=== PATIENT | female | born 1955 | race Caucasian/White ===

== ENCOUNTER 2022-09-15 09:43 | Day surgery (SDC) | payer MEDICARE, BC, SELFPAY ==
[2022-09-15] VITALS (16 sets, daily range): BP systolic 110–145; BP diastolic 60–83; PULSE 56–81; RESP 16; TEMP 36; O2SAT 95–100; BMI 25.1
--- NOTE | 2022-09-15 09:50 | ED.NURSE ---
Ice applied to pt wrist
--- NOTE | 2022-09-15 09:55 | CRLHL7_ITS ---
For Patients: As a result of the Cures Act, medical imaging exams and procedure reports are released immediately into your electronic medical record. You may view this report before your referring provider. If you have questions, please contact your health care provider. Indication: Injury Technique: A total of two views of the left wrist were acquired. Comparison: None Findings: Bones: Impacted comminuted fracture the distal left radius with significant dorsal displacement and angulation deformity. Fracture of the distal left ulna with displacement impaction and dorsal angulation deformity Joint spaces: The radiocarpal interval and the scapholunate interval appear normal Soft tissues: Soft tissue swelling Impression: Fractures of the distal left radius and ulna Dictated by Hema Jane MD @ 09/15/2022 10:34:01 AM (Electronically Signed)
[2022-09-15] MEDS: ACETAMINOPHEN 500 MG TABLET 1000 MG PO (10:00)
--- NOTE | 2022-09-15 10:02 | ED.TRAUMA ---
HPI - Trauma General Chief Complaint: Extremity Pain/Injury, Upper Stated Complaint: L wrist injury Time Seen by Provider: 09/15/22 09:45 History of Present Illness HPI narrative: Pt is a 67 year old woman who fell on the ice today just prior to arrival injuring her left hand and wrist. She has severe pain in the wrist with only mild pain in the hand. She also has a small 1 cm skin tear on the anterior surface of the wrist. No shoulder or wrist pain. Pt did not hit her head and did not lose consciousness. Pt was walking outside when she fell. Pt has no otherr injuries. Pt otherwise feels well. Related Data Home Medications Medication Instructions Recorded Confirmed No Known Home Medications 09/15/22 09/15/22 Allergies Allergy/AdvReac Type Severity Reaction Status Date / Time penicillin G Allergy Verified 09/15/22 09:53 Review of Systems Status of ROS: Reports: 10 or more systems reviewed and unremarkable except as noted in History and below PFSH PFS Social History Smoking Status: Never smoker Do you use any of these nicotine containing products: None Second hand tobacco smoke exposure: No How often do you have a drink containing alcohol: never How often do you have six or more drinks on one occasion: Never AUDIT-C Alcohol total score: 0 Non-prescribed substance use: denies use service: No Exam Narrative: Exam Narrative: EXAM GENERAL: Patient appears to be in pain. EYES: No scleral icterus. LYMPH: No supraclavicular or cervical lymphadenopathy. SKIN: Visible skin seen during exam normal or with benign process only. EXT: No dependent lower extremity pedal edema. Non anatomical alignment of the distal ulna grossly on external inspection. Pulses are appropriate no neural muscular abnormalities. HEART: Regular rate and rhythm with no murmurs, rubs, or gallops. LUNGS: Clear to auscultation bilaterally with no crackles or wheezes. ABD: Soft, non tender, non distended. PSYCH: Good eye contact, speech is not pressured. Const: Vital Signs, click to edit/add: Vital Signs - 24 hr 09/15/22 09:50 Pulse Rate [Left P ulse Oximeter] 56 L Respiratory Rate 16 Blood Pressure [Ri ght Upper Arm] 122/83 Pulse Oximetry 95 Oxygen Delivery Me thod Room Air Course Course Hospital Course: X ray left hand and wrist ordered. Reevaluation(s) Reevaluation #1: X ray shows distal radius and ulna fractures. Skin tear examined. This appears to be an open fracture. Time: 11:29 Consultations Consultation #1: Spoke with Ortho and Anesthesia. They will plan to take pt to OR in the next hour. Time: 11:30 Vital Signs Vital signs: Initial Vital Signs Pulse Rate 56 L 09/15/22 09:50 Pulse Rhythm 09/15/22 09:50 Pulse Strength 3+ Normal 09/15/22 09:50 Respiratory Rate 16 09/15/22 09:50 Blood Pressure 122/83 09/15/22 09:50 Blood Pressure Mean 96 09/15/22 09:50 Blood Pressure Position Sitting 09/15/22 09:50 Pulse Oximetry 95 09/15/22 09:50 Oxygen Delivery Method 09/15/22 09:50 Vital Signs Pulse Rate 56 L 09/15/22 09:50 Respiratory Rate 16 09/15/22 09:50 Blood Pressure 122/83 09/15/22 09:50 Pulse Oximetry 95 09/15/22 09:50 Oxygen Delivery Method 09/15/22 09:50 Pulse Rate 56 L 09/15/22 09:50 Respiratory Rate 16 09/15/22 09:50 Blood Pressure 122/83 09/15/22 09:50 Pulse Oximetry 95 09/15/22 09:50 Oxygen Delivery Method 09/15/22 09:50 MDM - Trauma MDM Narrative Medical decision making narrative: Pt presents with injury to left wrist. Differential included sprain, fracture, strain, contusion. X ray showed distal radius and ulna fractures with skin opening making this an open fracture. Consulted with Ortho and Anesthesia. Pt will proceed to the OR for surgical repair. Tdap updated. Pain treated with po Tylenol and then IV Dilaudid. Discharge Plan Discharge Clinical Impression: Left wrist fracture Patient Disposition: Pending Disposition Activity Level: Other Discharge Diet: Other Prescriptions: No Action No Known Home Medications
[2022-09-15] MEDS: ONDANSETRON 2 MG/ML inj 4 MG IVP (10:48)
[2022-09-15] MEDS: HYDROmorphone 0.5 mg/0.5 ml inj IVP (10:48)
[2022-09-15] MEDS: TETANUS/DIPHTH/PERTUSSIS 0.5 ML SYRINGE IM (11:22)
[2022-09-15] MEDS: LACTATED RINGERS 1000 ML 1,000 ML 100 ML IV ×2 (11:45→15:19)
--- NOTE | 2022-09-15 11:57 | CRLHL7_ITS ---
For Patients: As a result of the Cures Act, medical imaging exams and procedure reports are released immediately into your electronic medical record. You may view this report before your referring provider. If you have questions, please contact your health care provider. Indication: LT INTRA OP ORIF WRIST Technique: Three fluoroscopic images of the left wrist. Fluoroscopic time 2 minutes 3.6 seconds. IMPRESSION: Postop changes open reduction internal fixation of distal radial fracture. Percutaneous pin placement about the distal ulnar fracture. Dictated by Gordon Álvarez MD @ 09/16/2022 9:43:54 AM (Electronically Signed)
[2022-09-15] MEDS: MIDAZOLAM HCL 1 MG/ML inj IVP (12:05)
[2022-09-15] MEDS: fentaNYL 100 MCG/2 ML inj IVP (12:05)
[2022-09-15 12:17] LABS: SARS PCR* Negative SARS-CoV-2 (Negative)
--- NOTE | 2022-09-15 12:24 | P.NB_ITS ---
Nerve Block Nerve Block Time Seen by Provider: 12:00 Date Seen: 09/15/22 Type of block requested by surgeon for post-operative analgesia: axillary Side: left Time out performed: Yes Verification of patient name: Yes Verification of date of : Yes Site marking: site marked Name of person performing procedure: robert Continuous monitoring Was continuous monitoring of O2 sat, B/P, teletypesetter monitor, recorded every 15 minutes?: Yes Procedure Checklist: sterile prep, needles and gloves Ultrasound guided. Images saved: Yes Medications given in 5ml increments after negative aspiration: Ropivicaine %: 0.5 mL: 20 Needle gauge: 20 Decadron (mg): 10 Precedex (mcg): 25 Patient tolerated procedure well: Yes Block Charges Block Charge (with Pro Fee): Axillary Nerve Use of Ultrasound Machine for Block: Yes- US Guidance/pain block
--- NOTE | 2022-09-15 12:26 | SUR.PREOP ---
TIME?OUT:?1203 PT/RN/SEATING CAPTAIN?VERIFICATION?OF?SURGICAL?SITE left wrist,?PROCEDURE,?AND?CONSENT OBTAINED?PRIOR?TO?INVASIVE?PROCEDURE.
[2022-09-15] MEDS: CEFAZOLIN 2 GM in 0.9 % SODIUM CHLORIDE Mini-bag 100 ML IVPB (12:35)
--- NOTE | 2022-09-15 14:53 | PM.ORPRC ---
Procedure Note Date of procedure: 09/15/22 Procedure: PREOPERATIVE DIAGNOSIS: Type 1 open, Angulated 3+ part intra-articular left upper extremity distal radius and ulna fractures POSTOPERATIVE DIAGNOSIS: Type 1 open, Angulated 3+ part intra-articular left upper extremity distal radius and ulna fractures NAME OF OPERATION: Open reduction internal fixation, irrigation and debridement of bone and soft tissue contamination SURGEON: Gonzalo Stern MD GUIDE DOMESTIC TOUR: Ivonne Pitts PA-C, [employer] [facility] ANESTHESIA: Supraclavicular block plus monitored anesthesia care ESTIMATED BLOOD LOSS: 0 mL COMPLICATIONS: None SPECIMENS: None DRAINS: None PREOPERATIVE ANTIBIOTICS: Ancef 2 grams INDICATIONS: The patient is a 67-year-old who fell landing on their upper extremity sustaining the above injury. Since the fracture was open, emergent treatment was recommended. Given the amount of displacement and angulation, reduction and plate fixation were recommended. The risks, benefits and expected outcomes were discussed in detail. These included but were not limited to: Infection, bleeding, injury to blood vessel or nerve, venous thromboembolism. All questions were answered to their satisfaction. Use of an laboratory chemical assistant was necessary throughout the case for patient positioning and safety, maintenance of the reduction, surgical site dressing and splint application. A modifier 22 should be added to this case. Given the amount of displacement, comminution, intra-articular nature and involvement of the ulna this made reduction and fixation quite difficult. This more than tripled the time typically required to repair a distal radius fracture. PROCEDURE: A supraclavicular block was placed by Anesthesia. The patient was placed supine on the operating room table. IV sedation was administered. The left upper extremity was prepped and draped in the usual sterile fashion. The limb was exsanguinated with the Marcin bandage. The pneumatic tourniquet was inflated to 250 mm of mercury. There is an 8 mm, inside out, transverse laceration over the volar aspect of the wrist. There is a 3 x 5 mm piece of cortical bone adherent to the skin/superficial soft tissues. It appears contaminated with either dirt or gravel. The rest of the traumatic wound is clean, without contamination. This small piece of bone was debrided. A longitudinal incision was made over the flexor carpi radialis. Subcutaneous dissection was taken sharply through the FCR sheath. The FCR was retracted radially. Sharp dissection was carried through the floor of the FCR sheath. The flexor pollicis longus was retracted ulnarly. Sharp dissection was carried through the radial border of the pronator quadratus which was elevated ulnarly, exposing the fracture site. The laboratory chemical assistant held retractors to expose the fracture. There is a marked amount of comminution. We irrigated traumatic wound and surgical wound with 1 L of normal saline via bulb syringe. We placed a Synthes 6 hole volar locking plate over the volar cortex. It was provisionally held with 2 BB tacks, while the laboratory chemical assistant held the reduction. Its placement was confirmed with the image intensifier. We placed a cortical screw in the slot. We placed a locking screw in the shaft. We then filled the distal screw holes with smooth locking pegs using the image intensifier to confirm their extra-articular placement. The radial column appears reduced. However, the ulnar column was displaced ulnarly and would not reduce in the radial direction. Therefore we took the entire distal construct down and started over. We were able to visualize anatomic landmarks on the ulnar column. Therefore, we started here holding this anatomically reduced. We placed 3 smooth locking pegs in this fragment. This nicely held the ulnar column. Next we reduced the radial column to the ulnar column holding it out to length and shifted ulnarly. We then placed 3 smooth pegs in the radial column. This provided good fixation on this side of the fracture. At this point, we felt like we had an excellent reduction. None of our smooth pegs appear in the joint, carefully visualized in many planes with the image intensifier. A 2nd locking screw was placed in the shaft fragment. The ulna fracture is nicely aligned as the distal radioulnar joint ligaments are intact. However, we felt that some provisional fixation of the ulna fracture was necessary. Therefore, a 0.062 in K-wire was driven retrograde through the ulnar styloid and ulnar head, across the fracture site and down the canal. This improved our fixation of the ulna fracture. The wound was irrigated normal saline. The fracture site was bone grafted with cancellous allograft mixed with DBM and several autologous cortical pieces which were devoid of soft tissue attachments. Subcutaneous tissues were reapproximated a 2-0 Vicryl, skin with a running 3-0 Monocryl in a subcuticular fashion. Glue was used to seal the skin. A dry dressing and short-arm dorsal volar splint was applied. These steps were all completed by the laboratory chemical assistant. The tourniquet was released, sponge and needle counts were correct x2. The patient tolerated the procedure well, there were no apparent complications. They were taken to the postanesthesia care unit in satisfactory condition. PLAN: The patient will be discharged home. They will work on elevation of the hand and active range of motion of the fingers. They will follow up next week in the office for a wound check with a PA, oblique, lateral and fossa lateral view of the wrist out of the splint prior to being seen in preparation a short-arm, conventional cast. We will plan on 6 weeks total of immobilization, then discontinue the K-wire and begin occupational therapy.
--- NOTE | 2022-09-15 15:20 | P.ANES_ITS ---
Anesthesia Charges Start Date/Time Anesthesia Start Date: 09/15/22 Anesthesia Start Time: 12:28 Stop Date/Time Anesthesia Stop Date: 09/15/22 Anesthesia Stop Time: 15:21 Summary Emergency: [employer]
--- NOTE | 2022-09-15 15:26 | PM.ORCN ---
History of Present Illness HPI Date Seen: 09/15/22 Requesting physician: Marek Davis Chief complaint: L wrist injury Narrative: Patient is a 67-year-old, [id number] woman who fell on her outstretched left hand today. She was seen in the emergency department with physical exam findings worrisome for an open distal radius fracture. She has never injured this wrist or had surgery previously. She does not have diabetes, does not smoke cigarettes and is not on blood thinners. She states that her fingers are somewhat numb and tingly. Review of Systems Narrative: The patient denies: Fever, night sweats, shaking chills, nausea, vomiting, diarrhea, chest pain, chest pressure, shortness of breath, no rash, no change in hearing or vision, no issues with bleeding or clotting [facility] Social History Smoking Status: Never smoker Do you use any of these nicotine containing products: None Second hand tobacco smoke exposure: No How often do you have a drink containing alcohol: never How often do you have six or more drinks on one occasion: Never AUDIT-C Alcohol total score: 0 Non-prescribed substance use: denies use Caffeine: Yes service: No Meds Home Medications and Allergies Home Medications Medication Instructions Recorded Confirmed Type No Known Home Medications 09/15/22 09/15/22 History Allergies Allergy/AdvReac Type Severity Reaction Status Date / Time penicillin G Allergy Verified 09/15/22 09:53 Ortho Exam Narrative Exam Narrative: The patient is examined semi erect on the hospital cart. The left upper extremity has an 8 mm, transverse laceration over the volar aspect of the wrist. There is clinical apex volar angular malalignment. Sensation is grossly intact to light touch throughout all 3 nerve distributions. However, she states a numb and tingly feeling in all 5 digits. She is able to wiggle her fingers and thumb. The digits are pink and viable. Const Vital Signs, click to edit/add: Vital Signs - 24 hr 09/15/22 09:50 09/15/22 10:54 09/15/22 10:55 Temperature Pulse Rate 71 Pulse Rate [Left Pulse Oximeter] 56 L Respiratory Rate 16 Blood Pressure 110/60 Blood Pressure [Right Upper Arm] 122/83 Pulse Oximetry 95 97 Oxygen Delivery Method Room Air Oxygen Flow Rate 09/15/22 11:00 09/15/22 11:02 09/15/22 11:15 Temperature Pulse Rate 70 67 77 Pulse Rate [Left Pulse Oximeter] Respiratory Rate Blood Pressure 112/63 Blood Pressure [Right Upper Arm] Pulse Oximetry 99 98 98 Oxygen Delivery Method Oxygen Flow Rate 09/15/22 11:30 09/15/22 11:32 09/15/22 12:03 Temperature Pulse Rate 75 72 79 Pulse Rate [Left Pulse Oximeter] Respiratory Rate 16 Blood Pressure 122/80 123/61 Blood Pressure [Right Upper Arm] Pulse Oximetry 99 100 99 Oxygen Delivery Method Nasal Cannula Oxygen Flow Rate 2 09/15/22 12:11 09/15/22 12:15 09/15/22 12:20 Temperature Pulse Rate 81 76 73 Pulse Rate [Left Pulse Oximeter] Respiratory Rate 16 16 16 Blood Pressure 128/73 124/69 110/65 Blood Pressure [Right Upper Arm] Pulse Oximetry 100 100 98 Oxygen Delivery Method Nasal Cannula Nasal Cannula Nasal Cannula Oxygen Flow Rate 2 2 2 09/15/22 15:21 Temperature 96.8 F L Pulse Rate 74 Pulse Rate [Left Pulse Oximeter] Respiratory Rate 16 Blood Pressure 110/68 Blood Pressure [Right Upper Arm] Pulse Oximetry 97 Oxygen Delivery Method Room Air Oxygen Flow Rate Results Labs Labs: Laboratory Results - last 48 hr 09/15/22 11:30 SARS-CoV-2 (PCR) Negative SARS-CoV-2 Diagnostic results Additional Comments: AP and lateral views of the left wrist show a 3 part intra-articular, comminuted and dorsally displaced distal radius fracture. There may be a small cortical fragment in the volar soft tissues, just deep to the skin. There is a fracture of the distal aspect of the ulna at the neck. There is apex volar angulation and dorsal displacement of this fracture as well. Assessment and Plan Assessment and plan (1) Left wrist fracture: Status: Acute Plan Assessment: Type 1 open three-part intra-articular comminuted and displaced left upper extremity distal radius and ulna fractures foot Plan: I told the patient and her that her injury is best treated emergently. This would include irrigation and debridement of the traumatic injury and fixation of the fractures. She understands and wishes to proceed with surgery.
== END 2022-09-15 16:24 | disposition home or self-care (01) ==
LOC: ED 11:33 → SS 11:35
PROVIDERS: Emergency Provider Internal Medicine; Visit Provider Orthopaedic Surgery
PROC: (CPT 25575; principal; 2022-09-15 13:00)
DX: S52.572B Other intraarticular fracture of lower end of left radius, initial encounter for open fracture type I or II (principal); S52.692B Other fracture of lower end of left ulna, initial encounter for open fracture type I or II
CPT/HCPCS: 25609; 25652; 11012; 01830; 64417; 73100; 76000; 76942; 87635; 90715; 99140; 99283; 99284; 99285; A4580; A9270; C1713; J0690; J1100; J1170; J2250; J2405; J2704; J2795; J3010; J7120

== ENCOUNTER 2023-02-08 14:13 | Outpatient (CLI) | payer MEDICARE, BC, SELFPAY ==
--- NOTE | 2023-02-08 14:30 | CRLHL7_ITS ---
For Patients: As a result of the Century Cures Act, medical imaging exams and procedure reports are released immediately into your electronic medical record. You may view this report before your referring provider. If you have questions, please contact your health care provider. DXA BONE MINERAL DENSITY STUDY Current height (in): 68.0. Weight (lb): 170.0. Menopause age: 49. Ethnicity: White. 1. Have you had a previous hip or vertebral fracture? No. 2. Have you had any fractures during your adult life which did not result from significant trauma (e.g., auto accident)? No. 3. Did either of your parents have a hip fracture? Yes. 4. Do you smoke? No. 5. Have you ever taken Glucocorticoids? No. 6. Do you have rheumatoid arthritis? No. 7. Do you have secondary osteoporosis? No. 8. Do you drink 3 or more alcoholic drinks per day? No. 9. Are you being treated for osteoporosis? No. 10. Have you ever taken any of the following medications: Actonel, Evista, Fosamax, Miacalcin, Reclast, Boniva, Forteo, HRT (i.e. estrogen/hormone therapy), Protelos, Prolia, Vitamin D, Calcium, other ??? please specify. ANSWER: Yes, vitamin D. 11. Do you have any of the following medical conditions: Anorexia or bulimia, asthma or emphysema, end stage renal disease, hyperparathyroidism, any seizure disorders, cancer, inflammatory bowel diseases, hysterectomy, other ??? please specify. ANSWER: Yes, cancer. 12. What was your maximum height (inches)? 69. 13. Do you perform weight bearing exercise regularly? No. 14. Do you regularly consume dairy products? Yes. 15. Do you drink caffeinated beverages? Yes. 16. At what age did your period start? 12. 17. Are you premenopausal? No. 18. How many full term pregnancies have you had? 2. 19. Have you ever missed your period for more than 6 months in a row (not including or menopause)? No. TECHNIQUE: Bone mineral density study was performed using the [employer]. FINDINGS: The results of the study expressed as bone mineral density (BMD) are as follows: Lumbar spine L1 to L4: BMD: 0.804 g/cm2. T-score: -2.2. Z-score: -0.2. Neck Left: BMD: 0.671 g/cm2. T-score: -1.6. Z-score: 0.1. Right: BMD: 0.707 g/cm2. T-score: -1.3. Z-score: 0.4. Total Left: BMD: 0.913 g/cm2. T-score: -0.2. Z-score: 1.2. Right: BMD: 0.873 g/cm2. T-score: -0.6. Z-score: 0.9. IMPRESSION: Osteopenia. FRAX 10-year Fracture Risk Major Osteoporotic Fracture: 17 percent Hip Fracture: 2.5 percent Reported Risk Factors: [place] () Neck BMD=0.671, BMI=25.8, parental fracture Gordon Álvarez M.D. Diagnostic Radiologist [email or web address] KELLY/megan / be/Dictated by: Gordon Álvarez MD @ 02/08/2023 3:33:00 PM (Electronically Signed)
== END 2023-02-08 14:14 | disposition home or self-care (01) ==
LOC: RAD 14:14
PROVIDERS: PCP Family Medicine; Visit Provider Family Medicine
DX: Z78.0 Asymptomatic menopausal state (principal); M85.89 Other specified disorders of bone density and structure, multiple sites
CPT/HCPCS: 77080

== ENCOUNTER 2023-02-28 07:50 | Outpatient (CLI) | payer MEDICARE, BC, SELFPAY | END 2023-02-28 07:51 | disposition home or self-care (01) | LOC: NFLDREF 12:31 | PROVIDERS: PCP Family Medicine; Referring Provider Family Medicine; Visit Provider Family Medicine | DX: E03.9 Hypothyroidism, unspecified (principal); R53.83 Other fatigue; E78.5 Hyperlipidemia, unspecified; M85.80 Other specified disorders of bone density and structure, unspecified site | CPT/HCPCS: 80053; 80061; 82306; 84443 ==

== ENCOUNTER 2023-05-30 07:31 | Outpatient (CLI) | payer MEDICARE, BC, SELFPAY | END 2023-05-30 07:32 | disposition home or self-care (01) | LOC: NFLDREF 06-01 16:24 | PROVIDERS: PCP Family Medicine; Referring Provider Family Medicine; Visit Provider Family Medicine | DX: E78.5 Hyperlipidemia, unspecified (principal); M85.80 Other specified disorders of bone density and structure, unspecified site; T45.2X1A Poisoning by vitamins, accidental (unintentional), initial encounter | CPT/HCPCS: 80061; 82306 ==

== ENCOUNTER 2024-03-05 07:34 | Outpatient (CLI) | payer MEDICARE, BC, SELFPAY ==
--- OUTSIDE RECORDS SUMMARY | 2024-03-05 15:55 | XMS_ITS | Encounter Summary ---
Author Organization [facility] Address [address] [place] [address]. [place] [address] Care Team Providers Care Small Business Director Name Role Phone SteeleLor rivera Faye MEAT GRADER Unavailable [phone] Shannon Dominguez MD Primary Care Provider Shannon Dominguez MD Unavailable [phone] Encounter Details Date Type Department Care Team (Late st Contact Info) Description 11/17/2020 [facility] [place]ice [facility] [id number] [place] [id number] [place] [id number] [place] [address] Social History Tobacco Use Types Packs/Day Years Used Date Smoking Tobacco: Former Cigarettes Smokeless Tobacco: Never Comments:quit in 1984 Alcohol Use Standard Drinks/Week Comments Yes 0 (1 standard drink = 0.6 oz pur e alcohol) rare PHQ-2 Answer Date Recorded PHQ-2 Score 0 11/10/2020 Sex and Gender Information Value Date Recorded Sex Assigned at Female 08/17/2020 3:07 PM [employer] CLERK Gender Identity Female 08/17/2020 3:07 PM [employer] CLERK Sexual Orientation Straight 08/17/2020 3: 07 PM [employer] CLERK COVID-19 Exposure Response Date Recorded In the last month, have you been in contact with someone who was confirmed or suspected to have Coronavirus / COVID-19? No / Unsure 11/10/2020 4:00 PM CDT documented as of this encounter Miscellaneous Notes * Telephone Encounter - Edward Degroot CMA - 11/18/2020 7:34 AM CDT Sent her a mychart at 730am on 11/18/2020 that her last colonocospy was 04/06/2018.Edward Degroot CMA documented in this encounter Plan of Treatment Not on file documented as of this encounter Visit Diagnoses Not on filedocumented in this encounter Care Teams Small Business Director Relationship Specialty [place] [address] [place] [address] PCP - General Family Medicine 11/10/20 Lor Steele NP [facility] [address] [place] [address] Assigned PCP 02/02/20 11/28/20 [place] [address] [place] [address] Assigned PCP 11/29/20 documented as of this encounter
--- OUTSIDE RECORDS SUMMARY | 2024-03-05 15:55 | XMS_ITS | Clinical Summary ---
Author Organization [facility] Address [address] [place] [address] Care Team Providers Care Regional Clinical Director Name Role Phone Shannon Dominguez MD Primary Care Provider [phone] Shannon Dominguez MD Unavailable [phone] Allergies Active Allergy Reactions Criticality Noted Date Comments Penicillin V 03/22/2010 Rash, hives Medications Medication Sig Dispensed Refills Start Date End Date Status multivitamin, therapeutic with minerals (THERA-VIT-M) TABS tablet Take 1 tablet by mouth daily Active Active Problems Problem Noted Date Diagnosed Date Nontoxic multinodular goiter 11/10/2020 Malignant neoplasm of right female breast, unspecified estrogen receptor status, unspecified site of breast 11/10/2020 Family history of osteoporosis 04/01/2013 Vitamin D deficiency 03/29/2012 Osteopenia 03/22/2010 Resolved Problems Problem Noted Date Diagnosed Date Resolved Date Cervical pain 10/10/2017 01/02/2018 Left shoulder pain 10/10/2017 8 Malignant neoplasm of female breast, unspecified laterality, unspecified site of breast 01/27/2017 11/10/2020 Overview: Seeing oncologist -Dr Harmon-[facility] Wrist stiffness 01/14/2016 05/06/2016 Closed fracture of right distal radius 01/14/2016 11/10/2020 Closed displaced fracture of styloid process of right ulna with delayed healing 01/14/201611/10 Traumatic closed minimally d isplaced fracture of distal ulna 12/02/2015 05/06/2016 Closed traumatic nondisplace d fracture of distal end of right radius 12/02/2015 05/06/2016 Advanced directives, counseling/discussion 04/17/2012 01/22/2024 Overview: Referral placed on patient's behalf. Message left to call regarding needs for HC. Tona Willis LPN Thyroid nodules 03/26/2012 11/10/2020 Overview: Problem list name updated by automated process. Provider to review and confirm CARDIOVASCULAR SCREENING; LD L GOAL LESS THAN 160 06/06/2010 01/27/2017 Breast cancer 03/22/2010 01/27/2017 Overview: Seeing oncologist -Dr Harmon-[facility] Thyroid enlarged 03/22/2010 11/10/2020 Immunizations Name Administration Dates Next Due COVID-19 MONOVALENT 12+ (Pfizer) 09/26/2020,08/08 Influenza (IIV3) PF 05/07/2015 Influenza Vaccine 18-64 (Flublok) 05/17/2018 Influenza Vaccine 65+ (FLUAD) 05/03/2020 Influenza Vaccine >6 months,quad, PF 05/07/2016 Pneumococcal 20 valent Conjugate (Prevnar 20) TDAP Vaccine (Adacel) 01/31/2019 TDAP Vaccine (Boostrix) 03/22/2010 Zoster recombinant adjuvanted (SHINGRIX) 021,08/21/2020 Family History Medical History Relation Comments Hypertension Brother 1 Family History Negative Father fro m fall-at age of 42 Family History Negative Maternal Grandfather Congenital Anomalies Maternal Grandmother Heart Disease Maternal Grandmother at of 65 Arthritis Mother PMR hx of this Heart Disease Mother last year-f rom uti bpfrhbo-ccjrtwrsoj-ug age of 76 Osteoporosis Mother mother had heart attack at 66 Cancer Paternal Grandfather leukemia Heart Disease Paternal Grandmother from h eart atttack at age of 62 Hypertension Sister 1 Breast Cancer No family hx of Cancer - colorectal No family hx of Colon Cancer No family hx of Relation Status Comments Brother Father Maternal Grandfather Maternal Grandmother Mother Paternal Grandfather Paternal Grandmother Sister Social History Tobacco Use Types Packs/Day Years Used Date Smoking Tobacco: Former Cigarettes Smokeless Tobacco: Never Comments:quit in 1984 Alcohol Use Standard Drinks/Week Comments Yes 0 (1 standard drink = 0.6 oz pur e alcohol) rare Social Connection and Isolat ion Panel [NHANES] Answer Date Recorded In a typical week, how many times do you talk on the phone with family, friends, or neighbors? More than three times a week 01/31/2022 How often do you get togethe r with friends or relatives? Once a week 01/31/2022 How often do you attend chur or hinduism services? More than 4 times per year 01/31/2022 Do you belong to any clubs o r organizations such as mandaen groups, unions, fraternal or athletic groups, or school groups? Yes 01/31/2022 Attends Club or Organization Meetings Not on angel e 01/31/2022 Are you , , di vorced, , never , or living with a partner? 01/31/2022 AUDIT-C Answer Date Recorded Q1: How often do you have a drink containing alcohol? 4 or more times a week 01/31/2022 Q2: How many drinks containi ng alcohol do you have on a typical day when you are drinking? 1 or 2 Q3: How often do you have si x or more drinks on one occasion? Never 01/31/2022 Overall Financial Resource Strain (CARDIA) Answe r Date Recorded How hard is it for you to pa y for the very basics like food, housing, medical care, and heating? Not hard at all 01/31/2022 PHQ-2 Answer Date Recorded PHQ-2 Score 0 01/31/2022 [facility] - Occupational Stress Questionnaire Answer Date Recorded Do you feel stress - tense, restless, nervous, or anxious, or unable to sleep at night because your mind is troubled all the time - these days? Not at all 01/31/2022 Exercise Vital Sign Answer Date Recorde d On average, how many days pe r week do you engage in moderate to strenuous exercise (like a brisk walk)? 7 days 01/31/2022 On average, how many minutes do you engage in exercise at this level? 40 min 01/31/2022 Hunger Vital Sign Answer Date Recorded Within the past 12 months, y ou worried that your food would run out before you got the money to buy more. Never true 02/01/20 22 Within the past 12 months, t he food you bought just didn't last and you didn't have money to get more. Never true 01/31/2022 PRAPARE - Transportation Answer Date Re corded In the past 12 months, has l ack of transportation kept you from medical appointments or from getting medications? No 01/06 In the past 12 months, has l ack of transportation kept you from meetings, work, or from getting things needed for daily living? No 01/31/2022 Housing Stability Vital Sign Answer Kentrell e Recorded In the last 12 months, was t here a time when you were not able to pay the mortgage or rent on time? No 01/31/2022 In the last 12 months, how many places have you lived? 1 01/31/2022 In the last 12 months, was t here a time when you did not have a steady place to sleep or slept in a correction (including now)? No 01/31/2022 Adolescent Education Answer Date Record ed Getting School Help Needed Not on file 05/24 Sex and Gender Information Value Date Recorded Sex Assigned at Female 08/17/2020 3:07 PM SKEIN WASHER Gender Identity Female 08/17/2020 3:07 PM SKEIN WASHER Sexual Orientation Straight 08/17/2020 3: 07 PM SKEIN WASHER Last Filed Vital Signs Vital Sign Reading Time Taken Comments Blood Pressure 122/78 01/31/2022 6:56 AM CDT Pulse 91 01/31/2022 6:56 AM CDT Temperature 36.7 ??C (98 ??F) 01/31/2022 6:56 AM CDT Respiratory Rate 16 01/31/2022 6:56 AM CDT Oxygen Saturation 98% 01/31/2022 6:56 AM CDT Inhaled Oxygen Concentration - - Weight 79.4 kg (175 lb) 01/31/2022 6:56 AM CDT Height 172.7 cm (5' 8) 01/31/2022 6:56 AM CDT Body Mass Index 26.61 01/31/2022 6:56 AM CDT Plan of Treatment Health Maintenance Due Date Last Done Comments CT COLONOGRAPHY 1955 FIT 1955 FLEX SIG 1955 sDNA (Cologuard) 1955 RSV VACCINE ( & 60+) (1 - 1-dose 60+ series) 2014 GLUCOSE 02/27/2021 02/27/2018, 11/0 02/2016, 07/01/2015, Additional history exists ANNUAL REVIEW OF HM ORDERS 01/31/2023 01/31/2022, FALL RISK ASSESSMENT 01/31/2023 01/31/2022, 11/10/2020, 11/10/2020 MEDICARE ANNUAL WELLNESS VISIT 01/31/2023 01/31/2022, 11/10/2020, 02/27/2018, Additional history exists COVID-19 Vaccine ( season) 2023 08/17/2021, 09/26/2020, 09/04/2020 PHQ-2 (once per calendar year) 2023 01/31/2022, 11/10/2020, 02/27/2018, Additional history exists DEXA 01/19/2024 01/18/2021, 0804/2012, 01/05/2010 INFLUENZA VACCINE (#1) 2024 , 05/03/2020, 05/17/2018, Additional history exists MAMMO SCREENING 10/08/2024 10/09/2023, 08/09, 09/09/2021, Additional history exists ADVANCE CARE PLANNING 11/10/2025 11/10/2020 , 02/27/2018 (Declined), 04/17/2012, Additional history exists LIPID 01/31/2027 01/31/2022, 04/0 01/2021, 02/27/2018, Additional history exists COLONOSCOPY 04/06/2028 04/06/2018, 04/06/2018 COLORECTAL CANCER SCREENING 04/06/2028 DTAP/TDAP/TD IMMUNIZATION (4 - Td or Tdap) 09/15/2032 09/15/2022, 01/31/2019, 03/22/2010 HEPATITIS C SCREENING Completed 05/23/2014 LUNG CANCER SCREENING Discontinued 03/16/2018 ZOSTER IMMUNIZATION Completed 10/27/2020, Pneumococcal Vaccine: 65+ Years Completed 01/31/2022 HPV IMMUNIZATION Aged Out No longer e ligible based on patient's age to complete this topic IPV IMMUNIZATION Aged Out No longer e ligible based on patient's age to complete this topic MENINGITIS IMMUNIZATION Aged Out No l onger eligible based on patient's age to complete this topic RSV MONOCLONAL ANTIBODY Aged Out No l onger eligible based on patient's age to complete this topic Procedures Procedure Name Priority Date/Time Associated Diagnosis Comments MA SCREENING LEFT W/ TAD Routine 10/09/2023 11:33 AM SKEIN WASHER Visit for screening mammogram LIPID REFLEX TO DIRECT LDL PANEL Routine 01/31/2022 7:26 AM CDT Routine general medical examination at a health care facility DX BONE DENSITY Routine 01/18/2021 1:39 PM CDT Asymptomatic menopause COLONOSCOPY Routine 04/06/2018 8:[address] CHEST/ABDOMEN/PELVIS W CONTRAST Routine 03/16/2018 9:10 AM CDT GLUCOSE Routine 02/27/2018 8:41 AM CDT Encounter for routine adult health examination without abnormal findings HEPATITIS C ANTIBODY Routine 05/23/2014 8:15 AM CDT Routine General Medical Examination At A Health Care Facility from Last 3 Months or Most Recently Relevant to Health Maintenance Results * MA Screen Left w/Tda (10/09/2023 11:33 AM SKEIN WASHER) Anatomical Region Laterality Modality Breast Bilateral Mammography Impressions 10/10/2023 1:28 PM SKEIN WASHER IMPRESSION: ACR BI-RADS Category 1: Negative BREAST CANCER SCREENING RECOMMENDATION: Routine yearly mammography beginning at age 40 or as discussed with your provider. The results and recommendations of this examination will be communicated to the patient. Kenn Polanco MD Narrative 10/10/2023 1:28 PM SKEIN WASHER LEFT FULL FIELD DIGITAL SCREENING MAMMOGRAM WITH TOMOSYNTHESIS Performed on: 10/09/23 Compared to: 09/05/2022, 08/19/2020, and 06/06/2016 Technique: ??This study was evaluated with the assistance of Computer-Aided Detection. ??Breast Tomosynthesis was used in interpretation. Findings: The patient is status post right mastectomy. The breast is heterogeneously dense, which may obscure small masses. ??There is no radiographic evidence of malignancy. Shannon Dominguez MD IMG MAMMOGRAPHY O RDERABLES * (ABNORMAL) Lipid panel reflex to direct LDL Fasting (01/31/2022 7:26 AM CDT) Cholesterol 256(H) <200 mg/dL 01/31/2022 1:33 PM CDT [facility] Triglycerides 99 <150 mg/dL 01/31/2022 1:33 PM CDT [facility] Direct Measure HDL 73 >=50 mg/dL 01/31/2022 1:33 PM CDT [facility] LDL Cholesterol Calculated 163(H) <=100 mg/dL 01/31/2022 1:33 PM CDT [facility] Non HDL Cholesterol 183(H) <130 mg/dL 01/31/2022 1:33 PM CDT [facility] Patient Fasting > 8hrs? Unknown 01/31/2022 1:33 PM CDT [facility] Blood STRUCTURE OF RIGHT UPPER LIMB / Unknown Venipuncture / Unknown 01/31/2022 7:26 AM CDT 01/31/2022 7:34 AM CDT Narrative [facility] - 01/31/2022 1:33 PM CDT Cholesterol Desirable: ??<200 mg/dL Triglycerides Normal: ??Less than 150 mg/dL Borderline High: ??150-199 mg/dL High: ??200-499 mg/dL Very High: ??Greater than or equal to 500 mg/dL Direct Measure HDL Female: ??Greater than or equal to 50 mg/dL Male: ??Greater than or equal to 40 mg/dL LDL Cholesterol Desirable: ??<100mg/dL Above Desirable: ??100-129 mg/dL Borderline High: ??130-159 mg/dL High: ??160-189 mg/dL Very High: ??>= 190 mg/dL Non HDL Cholesterol Desirable: ??130 mg/dL Above Desirable: ??130-159 mg/dL Borderline High: ??160-189 mg/dL High: ??190-219 mg/dL Very High: ??Greater than or equal to 220 mg/dL Shannon Dominguez MD LAB - BLOOD ORDER [place] [address] Lab (no room number, 1st floor of clinic) [place] [address], [facility] [phone] * DEXA HIP/PELVIS/SPINE - Future (01/18/2021 1:39 PM CDT) Anatomical Region Laterality Modality Dexa Bone Mineral Den sity Narrative 01/20/2021 3:44 PM CDT BONE DENSITOMETRY [address] [address] 01/18/2021 ?? PATIENT: Ijeoma Rivera CHART: [id number] : ??1955 AGE: ??65 year old SEX: ??female REFERRING PROVIDER: ??Shannon Dominguez MD ?? PROCEDURE: ??Bone density scanning was performed using DXA technology of the lumbar spine and hip. ??Scanning was performed on a Wimdu scanner. ??Reporting is completed in the form of a T-score. ??The T-score represents the standard deviation from peak bone mass based on a young healthy adult. ?? REFERENCE T-SCORES: ?Normal ?-1.0 and greater ?Osteopenia ? Between -1.0 and -2.5 ?Osteoporosis ? -2.5 and less ? RISK FACTORS: ??Post-menopausal, Parent history of osteoporosis, Parent history of a hip fracture, Fracture of wrist CURRENT TREATMENT: ??Calcium with Vitamin D ?? FINDINGS: ? Lumbar Spine (L1-L4) ?T-score: ??-2.2, marked degenerative changes present ? Left Femoral Neck ?T-score: ??-1.7 ? Right Femoral Neck ?T-score: ??-1.5 ? Lumbar (L1-L4) BMD: 0.926 ? Total Hip Mean BMD: 0.882 ?? IMPRESSION Osteopenia., Degenerative changes of the lumbar spine which may falsely elevate results. Patient had a study performed previously, however the scans are not available to compare to the current study. Recommendations include ensuring adequate Calcium and Vitamin D. The current NOF Guidelines recommend treatment for patients with prior hip or vertebral fracture, T-score -2.5 or below, or 10 year risk of any major osteoporotic fracture >20% or 10 year risk of hip fracture >3%, as calculated using the FRAX calculator (www.shef.ac.uk/FRAX or you can google FRAX). ?? This patient's risks based on available information, with the use of FRAX, are 29 % for major osteoporotic fracture and 2.6 % for hip fracture. Based on these guidelines, treatment (in addition to calcium and vitamin D) is recommended for this patient, after ruling out other causes of osteoporosis. This is meant as an aid to clinical decision making; one must still use clinical judgement. Follow up can be considered in 2 years. Christine Garcia M.D. Electronically signed Shannon ROMOA ORDERABL ES * COLONOSCOPY (04/06/2018 8:23 AM CDT) COLONOSCOPY [facility] Patient Name: Ijeoma Rivera ?Procedure Date: 04/06/2018 8:23 AM ? Date of : 1955 ? Admit Type: Outpatient Age: 62 ? Gender: Female Attending MD: Karina Hughes MD ?Total Sedation Time: 25 minutes Instrument Name: 138 ? Procedure: ?Colonoscopy Indications: ?Screening for colorectal malignant neoplasm Providers: ?Karina Hughes MD (Doctor) Referring MD: ? Lor Coombs NP (Referring MD) Medicines: ?Midazolam 2 mg IV, Fentanyl 75 micrograms IV Complications: ?No immediate complications. Procedure: ?Pre-Anesthesia Assessment: ?- Prior to the procedure, a History and Physical ?was performed, and patient medications and ?allergies were reviewed. The patient is competent. ?The risks and benefits of the procedure and the ?sedation options and risks were discussed with the ?patient. All questions were answered and informed ?consent was obtained. Patient identification and ?proposed procedure were verified by the physician ?and the nurse in the procedure room. Mental Status ?Examination: alert and oriented. Airway ?Examination: normal oropharyngeal airway and neck ?mobility. Respiratory Examination: clear to ?auscultation. CV Examination: normal. Prophylactic ?Antibiotics: The patient does not require ?prophylactic antibiotics. Prior Anticoagulants: The ?patient has taken no previous anticoagulant or ?antiplatelet agents. ASA Grade Assessment: I - A ?normal, healthy patient. After reviewing the risks ?and benefits, the patient was deemed in ?satisfactory condition to undergo the procedure. ?The anesthesia plan was to use moderate sedation / ?analgesia (conscious sedation). Immediately prior ?to administration of medications, the patient was ?re-assessed for adequacy to receive sedatives. The ?heart rate, respiratory rate, oxygen saturations, ?blood pressure, adequacy of pulmonary ventilation, ?and response to care were monitored throughout the ?procedure. The physical status of the patient was ?re-assessed after the procedure. ?After obtaining informed consent, the colonoscope ?was passed under direct vision. Throughout the ?procedure, the patient's blood pressure, pulse, and ?oxygen saturations were monitored continuously. The ?[employer] Colonoscope Model #[id number]-H190L, ?[place]#138, SN#[id number] was introduced through the ?anus and advanced to the cecum, identified by ?appendiceal orifice and ileocecal valve. The ?colonoscopy was performed without difficulty. The ?patient tolerated the procedure well. The quality ?of the bowel preparation was good. ? Findings: ? Internal hemorrhoids were found during retroflexion. The hemorrhoids ? were small. ? The exam was otherwise without abnormality. ? Impression: ? - Internal hemorrhoids. ?- The examination was otherwise normal. ?- No specimens collected. Recommendation: ? - Repeat colonoscopy in 10 years ? Electronically signed by Fide Hughes M.D. _ Karina Hughes MD 04/06/2018 9:09:13 AM I was physically present for the entire viewing portion of the exam. Karina Hughes MD Number of Addenda: 0 Note Initiated On: 04/06/2018 8:23 AM MRN: ?[id number] Procedure Date: ? 04/06/2018 8:23:12 AM Scope Withdrawal Time: 0 hours 13 minutes 44 seconds Total Procedure Duration: 0 hours 21 minutes 19 seconds Estimated Blood Loss: ? none Scope In: 8:41:53 AM Scope Out: 9:03:12 AM RADIOLOGY RESULTS 04/06/2018 8:23 AM CDT Lor Steele ARCHITECTURE DRAFTER PROCEDURES Performing Organization Address [facility] de Phone Number RADIOLOGY RESULTS * Glucose (02/27/2018 8:41 AM CDT) Glucose 88 70 - 99 mg/dL 02/27/2018 2:58 PM CDT [facility] Comment:Fasting specimen Blood specimen (specimen) 02/27/2018 8:41 AM CDT 02/27/2018 8:42 AM CDT Lor Steele ARCHITECTURE DRAFTER LAB - BLOOD ORDERABL ES Performing Organization Address [facility] de Phone Number [facility] [address] [place] [address] * Hepatitis C antibody (05/23/2014 8:15 AM CDT) Hepatitis C Antibody Negative NEG [facility] Blood specimen (specimen) 05/23/2014 8:15 AM CDT 05/23/2014 8:20 AM CDT Lamar Knight APRN M[facility]REL PULLER LAB - BLOOD ORDERABLES Performing Organization Address [facility] de Phone Number [facility] from Last 3 Months or Most Recently Relevant to Health Maintenance Care Teams Regional Clinical Director Relationship Specialty [place] [address] [place] [address] PCP - General Family Medicine 11/10/20 [place] [address] [place] [address] Assigned PCP 11/29/20
--- OUTSIDE RECORDS SUMMARY | 2024-03-05 15:55 | XMS_ITS | Encounter Summary ---
Author Organization [facility] Address [address] [place] [address]. [place] [address] Care Team Providers Care Stem Mounter Name Role Phone Shannon Dominguez MD Primary Care Provider Shannon Dominguez MD Unavailable [phone] Encounter Details Date Type Department Care Team (Late st Contact Info) Description 03/07/2022 MyC Medical Advice [facility] [id number] [place] [id number] [place] [id number] [place] [address] Social History Tobacco Use Types Packs/Day [...] 01/31/2022 How often do you attend chur ch or mandaeism services? More than 4 times per year [...] Answer Date Recorded PHQ-2 Score 0 01/31/2022 [facility] - Occupational Stress Questionnaire Answer Date Recorded [...] place to sleep or slept in a mcfp (including now)? No 01/31/2022 Sex and Gender Information Value Date Recorded Sex Assigned at Female 08/17/2020 3:07 PM PARK KEEPER Gender Identity Female 08/17/2020 3:07 PM PARK KEEPER Sexual Orientation Straight 08/17/2020 3: 07 PM PARK KEEPER documented as of this encounter Plan of Treatment Not on file documented as of this encounter Visit Diagnoses Not on filedocumented in this encounter Care Teams Stem Mounter Relationship Specialty Start [place] [address] [place] [address] PCP - General Family Medicine 11/10/20 [place] [address] [place] [address] Assigned PCP 11/29/20 documented as of this encounter
--- OUTSIDE RECORDS SUMMARY | 2024-03-05 15:55 | XMS_ITS | Encounter Summary ---
Author Organization [facility] Address [address] [place] [address] Care Team Providers Care Platform Architect Name Role Phone Shannon Dominguez MD Primary Care Provider [phone] Shannon Dominguez MD Unavailable [phone] Encounter Details Date Type Department Care Team (Late st Contact Info) Description 02/08/2021 MyC Medical Advice [facility] Centralized Scheduling [address] [place] [phone] Vanessa Franklin Social History Tobacco Use Types Packs/Day Years Used Date Smoking Tobacco: Former Cigarettes Smokeless Tobacco: Never Comments:quit in 1984 Alcohol Use Standard Drinks/Week Comments Yes 0 (1 standard drink = 0.6 oz pur e alcohol) rare PHQ-2 Answer Date Recorded PHQ-2 Score 0 11/10/2020 Sex and Gender Information Value Date Recorded Sex Assigned at Female 08/17/2020 3:07 PM RIG SUPERINTENDENT Gender Identity Female 08/17/2020 3:07 PM RIG SUPERINTENDENT Sexual Orientation Straight 08/17/2020 3: 07 PM RIG SUPERINTENDENT COVID-19 Exposure Response Date Recorded In the last month, have you been in contact with someone who was confirmed or suspected to have Coronavirus / COVID-19? No / Unsure 01/18/2021 12:46 PM CDT documented as of this encounter Plan of Treatment Not on file documented as of this encounter Visit Diagnoses Not on filedocumented in this encounter Care Teams Platform Architect Relationship Specialty Start [place] [address] [place] [address] PCP - General Family Medicine 11/10/20 [place] [address] [place] [address] Assigned PCP 11/29/20 documented as of this encounter
--- OUTSIDE RECORDS SUMMARY | 2024-03-05 15:55 | XMS_ITS | Encounter Summary ---
Author Organization [facility] Address [address] [place] [address]. [place] [address] Care Team Providers Care Graining Press Operator Name Role Phone Shannon Dominguez MD Primary Care Provider Shannon Dominguez MD Unavailable [phone] Encounter Details Date Type Department Care Team (Late st Contact Info) Description 03/02/2022 Telephone [facility] [id number] [address] [place] [id number] [place] [address] Social History Tobacco Use Types Packs/Day [...] often do you attend chur ch or zoroastrianism services? More than 4 times per year 01/31/2022 Do you belong to any clubs o r organizations such as taoism groups, unions, fraternal or athletic groups, or [...] Answer Date Recorded PHQ-2 Score 0 01/31/2022 [facility] Occupat ional Health - Occupational Stress [...] place to sleep or slept in a fpc (including now)? No 01/31/2022 Sex and Gender Information Value Date Recorded Sex Assigned at Female 08/17/2020 3:07 PM LEAD GENERATION MARKETING MANAGER Gender Identity Female 08/17/2020 3:07 PM LEAD GENERATION MARKETING MANAGER Sexual Orientation Straight 08/17/2020 3: 07 PM LEAD GENERATION MARKETING MANAGER COVID-19 Exposure Response Date Recorded In the last 10 days, have yo u been in contact with someone who was confirmed or suspected to have Coronavirus/COVID-19? No / Unsure 01/31/2022 7:02 AM CDT documented as of this encounter Plan of Treatment Not on file documented as of this encounter Visit Diagnoses Not on filedocumented in this encounter Care Teams Graining Press Operator Relationship Specialty Start [place] [address] [place] [address] PCP - General Family Medicine 11/10/20 [place] [address] [address] [facility] [place] [address] Assigned PCP 11/29/20 documented as of this encounter
--- OUTSIDE RECORDS SUMMARY | 2024-03-05 15:55 | XMS_ITS | Referral Summary ---
Author Organization [facility] Address [address] [place] [address] Care Team Providers Care Manager Nicu Name Role Phone Shannon Dominguez MD Primary Care Provider [phone] Shannon Dominguez MD Unavailable [phone] Allergies Active Allergy Reactions Criticality Noted Date [...] breast 01/27/2017 11/10/2020 Overview: Seeing oncologist -[facility] Wrist stiffness 01/14/2016 05/06/2016 Closed fracture of [...] cancer 03/22/2010 01/27/2017 Overview: Seeing oncologist -[facility] Thyroid enlarged 03/22/2010 11/10/2020 Immunizations Name Administration Dates Next Due COVID-19 MONOVALENT 12+ (Pfizer) 09/26/2020,08/08 Influenza (IIV3) PF 05/07/2015 Influenza Vaccine 18-64 (Flublok) 05/17/2018 Influenza Vaccine 65+ (FLUAD) 05/03/2020 Influenza Vaccine >6 months,quad, PF 05/07/2016 Pneumococcal 20 valent Conjugate (Prevnar 20) TDAP Vaccine (Adacel) 01/31/2019 TDAP Vaccine (Boostrix) 03/22/2010 Zoster recombinant adjuvanted (SHINGRIX) 021,08/21/2020 Social History Tobacco Use Types Packs/Day Years [...] week 01/31/2022 How often do you attend [facility] or orthodoxy services? More than 4 times per year 01/31/2022 Do you belong to any clubs o r organizations such as religion groups, unions, fraternal or athletic groups, or [...] Answer Date Recorded PHQ-2 Score 0 01/31/2022 [facility] Occupat ional Health - Occupational Stress [...] place to sleep or slept in a care home (including now)? No 01/31/2022 Adolescent Education Answer Date Record ed Getting School Help Needed Not on file 05/24 Sex and Gender Information Value Date Recorded Sex Assigned at Female 08/17/2020 3:07 PM NURSE CONSULTANT Gender Identity Female 08/17/2020 3:07 PM NURSE CONSULTANT Sexual Orientation Straight 08/17/2020 3: 07 PM NURSE CONSULTANT Last Filed Vital Signs Vital Sign Reading [...] 01/31/2022 6:56 AM CDT Plan of Treatment Not on file Procedures Procedure Name Priority Date/Time Associated Diagnosis Comments MA SCREENING LEFT W/ TAD Routine 10/09/2023 11:33 AM NURSE CONSULTANT Visit for screening mammogram LIPID REFLEX TO [...] Health Maintenance Results * MA Screen Left w/Tad (10/09/2023 11:33 AM NURSE CONSULTANT) Anatomical Region Laterality Modality Breast Bilateral Mammography Impressions 10/10/2023 1:28 PM NURSE CONSULTANT IMPRESSION: ACR BI-RADS Category 1: Negative BREAST CANCER SCREENING RECOMMENDATION: Routine yearly mammography beginning at age 40 or as discussed with your provider. The results and recommendations of this examination will be communicated to the patient. Kenn Polanco MD Narrative 10/10/2023 1:28 PM NURSE CONSULTANT LEFT FULL FIELD DIGITAL SCREENING MAMMOGRAM WITH [...] MD LAB - BLOOD ORDER [facility] [address] Lab (no room number, 1st floor of clinic) [place] [address] [phone] * DEXA HIP/PELVIS/SPINE - Future (01/18/2021 1:39 PM CDT) Anatomical Region Laterality Modality Dexa Bone Mineral Den sity Narrative 01/20/2021 3:44 PM CDT BONE DENSITOMETRY [address] [address] 01/18/2021 ?? PATIENT: Ijeoma Rivera CHART: [id number] : ??1955 AGE: ??65 year old SEX: ??female REFERRING PROVIDER: ??Shannon Dominguez MD ?? PROCEDURE: ??Bone density scanning was performed using DXA technology of the lumbar spine and hip. ??Scanning was performed on a [employer] Elements scanner. ??Reporting is completed in the form [...] years. Christine Garcia M.D. Electronically signed Shannon Dominguez MD [employer] DEXA ORDERABL ES * COLONOSCOPY (04/06/2018 8:23 AM CDT) [facility] COLONOSCOPY [facility] Patient Name: Ijeoma Rivera ?Procedure Date: 04/06/2018 [...] and ?oxygen saturations were monitored continuously. The ?Olympus Peds Colonoscope Model #[id number]-H190L, ?[place]#138, SN#[id number] was introduced through the ?anus and advanced [...] Note Initiated On: 04/06/2018 8:23 AM MRN: ?[id number] Procedure Date: ? 04/06/2018 8:23:12 AM Scope Withdrawal Time: 0 hours 13 minutes 44 seconds Total Procedure Duration: 0 hours 21 minutes 19 seconds Estimated Blood Loss: ? none Scope In: 8:41:53 AM Scope Out: 9:03:12 AM RADIOLOGY RESULTS 04/06/2018 8:23 AM CDT Lor Steele OFFICE 365 CONSULTANT PROCEDURES RADIOLOGY RESULTS * Glucose (02/27/2018 8:41 AM CDT) Glucose 88 70 - 99 mg/dL 02/27/2018 2:58 PM CDT [facility] Comment:Fasting specimen Blood specimen (specimen) 02/27/2018 8:41 AM CDT 02/27/2018 8:42 AM CDT Lor Steele OFFICE 365 CONSULTANT LAB - BLOOD ORDERABL ES [facility] [address] [place] [address] * Hepatitis C antibody (05/23/2014 8:15 AM CDT) Hepatitis C Antibody Negative [facility] Blood specimen (specimen) 05/23/2014 8:15 AM CDT 05/23/2014 8:20 AM CDT Lamar Knight PATTERN MOLDER ANIMAL ATTENDANT LAB - BLOOD ORDERABLES [facility] from Last 3 Months or Most Recently Relevant to Health Maintenance Care Teams Manager Nicu Relationship Specialty [place] [address] [place] [address] PCP - General Family Medicine 11/10/20 [place] [address] [place] [address] Assigned PCP 11/29/20
--- OUTSIDE RECORDS SUMMARY | 2024-03-05 15:55 | XMS_ITS | Encounter Summary ---
Author Organization [facility] Address [address] [place] [address]. [place] [address] Care Team Providers Care Clinical Trials Manager Name Role Phone Lor Steele NP Primary Care Provider Lor Steele SOLUTION COORDINATOR Unavailable [phone] Lor Steele SOLUTION COORDINATOR Unavailable [phone] Shannon Dominguez MD Unavailable [phone] [facility] Primary Ca re Provider Lor Steele NP Unavailable [phone] Shannon Dominguez MD Primary Care Provider Shannon Dominguez MD Unavailable [phone] Encounter Details Date Type Department Care Team (Late st Contact Info) Description 02/13/2018 Telephone [facility] [address] [place] [address] Lor tSeele, VIK [facility] [address] [place], [place] [id number] Social History Tobacco Use Types Packs/Day Years Used Date Smoking Tobacco: Former Cigarettes Smokeless Tobacco: Never Comments:quit in 1984 Alcohol Use Standard Drinks/Week Comments No 0 (1 standard drink = 0.6 oz pur e alcohol) rare Sex and Gender Information Value Date Recorded Sex Assigned at Female 08/17/2020 3:07 PM REFINERY PIPELINE OPERATOR Gender Identity Female 08/17/2020 3:07 PM REFINERY PIPELINE OPERATOR Sexual Orientation Straight 08/17/2020 3: 07 PM REFINERY PIPELINE OPERATOR documented as of this encounter Miscellaneous Notes * Telephone Encounter - Arlin Diaz - 02/13/2018 8:37 AM CDT 02/13/18 Colonoscopy scheduled for 04/06/18 at 8:30am with Dr. Hughes Pharmacy Name: [facility] in [place], [place] Best number for patient: [phone] Best time to reach patient: Anytime documented in this encounter Plan of Treatment Not on file documented as of this encounter Visit Diagnoses Not on filedocumented in this encounter Care Teams Clinical Trials Manager Relationship Specialty Start Date End Date Lor Steele NP PCP - General Nurse Practitioner - Family 06/13/16 06/06/18 Lor Steele NP [facility] [address] [place] [address] PCP - Assigned PCP 01/28/18 10/09/18 [facility] [id number] [place] [address] PCP - General 06/22/19 11/09/20 [place] [address] [place] [address] PCP - General Family Medicine 11/10/20 Lor Steele SOLUTION COORDINATOR [facility] [address] [place] [address] Assigned PCP 01/28/18 03/02/19 [place] [address] [facility] [place] [address] Assigned PCP 03/03/19 02/01/20 Lor Steele NP [facility] [address] [place] [address] Assigned PCP 02/02/20 11/28/20 [place] [address] [place] [address] Assigned PCP 11/29/20 documented as of this encounter
--- OUTSIDE RECORDS SUMMARY | 2024-03-05 15:56 | XMS_ITS | Referral Summary ---
Author Organization [facility] Address [address] [place] [address] Care Team Providers Care Embedded Software Manager Name Role Phone Dominic Shultz MD Unavailable [phone] Kinsey Patterson MD Primary Care Provider [phone] Allergies Active Allergy Reactions Criticality Noted Date Comments Penicillins Dermatitis 06/16/2008 Medications Medication Sig Dispensed Refills Start Date End Date Status rosuvastatin (CRESTOR) 5 mg oral tablet Take 1 tablet (5 mg) by mouth once daily. 03/02/2023 Active multivitamin (CERTAVITE) 18-400 mg-mcg oral tablet Take 1 tablet by mouth once daily. Active calcium carbonate-vitamin D3 500 mg, 1250 mg,-5 mcg (OSCAL-D) oral tablet Take by mouth. 4 tablets per day Active Active Problems Problem Noted Date Diagnosed Date Multiple thyroid nodules 03/04/2011 Osteopenia 09/10/2010 Lipoma of skin and subcutaneous tissue 0 Breast cancer, stage 2 02/03/2009 Resolved Problems Problem Noted Date Diagnosed Date Resolved Date Osteoporosis 09/10/2010 09/10/2010 Osteopenia 02/16/2010 09/10/2010 Immunizations Name Administration Dates Next Due Pfizer 12+ Yrs MONOVALENT COVID Vaccine (purple cap) 09/26/2020,09/04/2020 Social History Tobacco Use Types Packs/Day Years Used Date Smoking Tobacco: Never Alcohol Use Standard Drinks/Week Comments No 0 (1 standard drink = 0.6 oz pur e alcohol) Sex and Gender Information Value Date Recorded Sex Assigned at Not on file Gender Identity Not on file Sexual Orientation Not on file Last Filed Vital Signs Vital Sign Reading Time Taken Comments Blood Pressure 136/75 04/04/2023 1:00 PM CDT Pulse 90 04/04/2023 1:00 PM CDT Temperature 36.7 ??C (98 ??F) 04/04/2023 1:00 PM CDT Respiratory Rate 18 03/29/2022 10:46 AM CDT Oxygen Saturation 96% 04/04/2023 1:00 PM CDT Inhaled Oxygen Concentration - - Weight 78.5 kg (173 lb) 03/29/2022 10:46 AM CDT Height 175.3 cm (5' 9) 04/04/2023 1:00 PM CDT Body Mass Index 25.55 03/29/2022 10:46 AM CDT Plan of Treatment Not on file Care Teams Embedded Software Manager Relationship Specialty Start Date End Date Kinsey Patterson MD [address] [place] [address] PCP - General Family Medicine 03/04/24 Dominic Shultz MD [address] [address] [place] [id number] Hematology/Oncology 02/25/16
--- OUTSIDE RECORDS SUMMARY | 2024-03-05 15:56 | XMS_ITS | Encounter Summary ---
Author Organization [facility] Address [address] [place] [address] Care Team Providers Care Felt Dyeing Machine Tender Name Role Phone Ashley Rabago MD Primary Care Provider [phone] Lamar Knight APRN [employer] Primary Care Provi kinga Lor Steele MAITRE D' Primary Care Provider [phone] Lor Steele MAITRE D' Unavailable [phone] Lor Steele MAITRE D' Unavailable [phone] Shannon Dominguez MD Unavailable [phone] [facility] Primary Ca re Provider Lor Steele MAITRE D' Unavailable [phone] Shannon Dominguez MD Primary Care Provider [phone] Shannon Dominguez MD Unavailable [phone] Encounter Details Date Type Department Care Team (Late st Contact Info) Description 05/07/2012 MyC Medical Advice [facility] [address] [place] [address] [facility] Social History Tobacco Use Types Packs/Day Years Used Date Smoking Tobacco: Former Cigarettes Comments:quit in 1984 Alcohol Use Standard Drinks/Week Comments No 0 (1 standard drink = 0.6 oz pur e alcohol) rare Sex and Gender Information Value Date Recorded Sex Assigned at Female 08/17/2020 3:07 PM SURGICAL TERRITORY MANAGER Gender Identity Female 08/17/2020 3:07 PM SURGICAL TERRITORY MANAGER Sexual Orientation Straight 08/17/2020 3: 07 PM SURGICAL TERRITORY MANAGER documented as of this encounter Plan of Treatment Not on file documented as of this encounter Visit Diagnoses Not on filedocumented in this encounter Care Teams Felt Dyeing Machine Tender Relationship Specialty Start Date End Date Ashley Rabago MD PCP - General Family Practice 07/30/10 05/22/14 Lamar Knight APRN INFORMATION SYSTEMS ARCHITECT PCP - General Nurse Practitioner - Family 05/23/14 02/10/16 Lor Steele, MAITRE D' PCP - General Nurse Practitioner - Family 06/13/16 06/06/18 Lor Steele, MAITRE D' [facility] [address] [place] [address] PCP - Assigned PCP 01/28/18 10/09/18 [facility] [address] [place] [address] PCP - General 06/22/19 11/09/20 [place] [address] [place] [address] PCP - General Family Medicine 11/10/20 Lor Steele, MAITRE D' [facility] [address] [place] [address] Assigned PCP 01/28/18 03/02/19 [place] [address] [place] [address] Assigned PCP 03/03/19 02/01/20 Lor Steele NP [facility] [address] [place] [address] Assigned PCP 02/02/20 11/28/20 [place] [address] [place] [address] Assigned PCP 11/29/20 documented as of this encounter
--- OUTSIDE RECORDS SUMMARY | 2024-03-05 15:56 | XMS_ITS | Encounter Summary ---
Author Organization [facility] Address [address] [place] [address]. [place] [address] Care Team Providers Care Side Laster Staple Name Role Phone Lor Steele NP Primary Care Provider Lor Steele MOBILE WEB APPLICATION DEVELOPER Unavailable [phone] Lor Steele MOBILE WEB APPLICATION DEVELOPER Unavailable [phone] Shannon Dominguez MD Unavailable [phone] [facility] Primary Ca re Provider Lor Steele NP Unavailable [phone] Shannon Dominguez MD Primary Care Provider Shannon Dominguez MD Unavailable [phone] Reason for Visit * Reason Onset Date Comments Outreach 10/28/2017 [facility] ATT 1 Encounter Details Date Type Department Care Team (Late st Contact Info) Description 10/28/2017 Telephone [facility] [address] [place] [address] Lor Steele NP [facility] [address] [place] [address] Outreach (PHS ATT 1) Social History Tobacco Use Types Packs/Day Years Used Date Smoking Tobacco: Former Cigarettes Smokeless Tobacco: Never Comments:quit in 1984 Alcohol Use Standard Drinks/Week Comments No 0 (1 standard drink = 0.6 oz pur e alcohol) rare Sex and Gender Information Value Date Recorded Sex Assigned at Female 08/17/2020 3:07 PM BIKE MECHANIC Gender Identity Female 08/17/2020 3:07 PM BIKE MECHANIC Sexual Orientation Straight 08/17/2020 3: 07 PM BIKE MECHANIC documented as of this encounter Miscellaneous Notes * Telephone Encounter - Lamar Odom - 10/28/2017 4:01 PM CDT 10/28/2017 Call Regarding Preventive Health Screening Colonoscopy Attempt 1 Message on voicemail Comments: Outreach Embossing Press Operator Lamar Odom documented in this encounter Plan of Treatment Not on file documented as of this encounter Visit Diagnoses Not on filedocumented in this encounter Care Teams Side Laster Staple Relationship Specialty Start Date End Date Lor Steele NP PCP - General Nurse Practitioner - Family 06/13/16 06/06/18 Lor Steele MOBILE WEB APPLICATION DEVELOPER [facility] [address] [place] [address] PCP - Assigned PCP 01/28/18 10/09/18 [facility] [address] [place] [address] PCP - General 06/22/19 11/09/20 [place] [address] [place] [address] PCP - General Family Medicine 11/10/20 Lor Steele MOBILE WEB APPLICATION DEVELOPER [facility] [address] [place] [address] Assigned PCP 01/28/18 03/02/19 [place] [address] [place] [address] Assigned PCP 03/03/19 02/01/20 Lor Steele MOBILE WEB APPLICATION DEVELOPER [facility] [address] [place] [address] Assigned PCP 02/02/20 11/28/20 [place] [address] [place] [address] Assigned PCP 11/29/20 documented as of this encounter
--- OUTSIDE RECORDS SUMMARY | 2024-03-05 15:56 | XMS_ITS | Continuity of Care Document ---
Author Organization [facility] Address [address] [address] [place] [address] Phone Care Team Providers Care Wage And Hour Investigator Name Role Phone Karina uHghes MD Unavailable Unavailable Procedures Procedure Date Colonoscopy Flex; Dx (sep Pro) 18 Moderate Sedation, Initial 15 minutes Au Advance Directives Directive Yes / No Effective Date File Name No Information Encounters Encounter Description Practice Location Reason(s) For Visit Diagnoses Date Provider Providers Copied on Encounter [facility], [address] [address], [place], [place], [id number], [place] tel:[phone] [facility] No Information Saul Collins. [address] [facility], [facility] [address], [place], [place], [id number], [place]. tel:[phone] Family History Family Member Type Diagnosis Age At Onset No Information Payers Payer name Insurance type Covered alliance party ID Authoriza tion(s) Preferred One Admin [facility] [id number] Social History Type Description Quantity Date Captured Comments Sex Female Smoking Status No Information Chief Complaint And Reason For Visit No Information Reason For Referral Reason For Referral No Information History Of Present Illness Encounter Date Complaint History Of Prese nt Illness No Information Functional Status Date Functional Assessmen t No Information Instructions Date Instruction Additional Infor mation No Information Assessments Type Assessment Date No Information Patient Care Teams Name Effective Dates (start - stop) Status Members No Information
--- OUTSIDE RECORDS SUMMARY | 2024-03-05 15:56 | XMS_ITS | Encounter Summary ---
Author Organization [facility] Address [address] [place] [address] Care Team Providers Care Coach Builder Name Role Phone Ashley Rabago MD Primary Care Provider [phone] Lamar Knight APRN [facility] Primary Care Provi kinga Lor Steele [employer]ARD[employer] Primary Care Provider Lor Steele [employer] Unavailable [phone] Lor Steele [employer] Unavailable [phone] Shannon Dominguez MD Unavailable [phone] [facility] Primary Ca re Provider Lor Steele [employer] Unavailable [phone] Shannon Dominguez MD Primary Care Provider [phone] Shannon Dominguez MD Unavailable [phone] Reason for Visit * Reason Onset Date Comments MyChart Communication 04/20/2012 referral Encounter Details Date Type Department Care Team (Latest Contact Info) Description 04/20/2012 [facility] [address] [place] [address] Ashley Rabago MD [address] [place] [phone] [facility] Communication (referral) Social History Tobacco Use Types Packs/Day Years Used Date Smoking Tobacco: Former Cigarettes Comments:quit in 1984 Alcohol Use Standard Drinks/Week Comments No 0 (1 standard drink = 0.6 oz pur e alcohol) rare Sex and Gender Information Value Date Recorded Sex Assigned at Female 08/17/2020 3:07 PM ANKLE PATCH MOLDER Gender Identity Female 08/17/2020 3:07 PM ANKLE PATCH MOLDER Sexual Orientation Straight 08/17/2020 3: 07 PM ANKLE PATCH MOLDER documented as of this encounter Plan of Treatment Not on file documented as of this encounter Visit Diagnoses Not on filedocumented in this encounter Care Teams Coach Builder Relationship Specialty Start Date End Date Ashley Rabago MD PCP - General Family Practice 07/30/10 05/22/14 Lamar Knight APRN CNP PCP - General Nurse Practitioner - Family 05/23/14 02/10/16 Lor Steele [employer] PCP - General Nurse Practitioner - Family 06/13/16 06/06/18 oLr Steele, FARM FORESTRY AND GARDEN WORKERS [facility] [address] [place] [address] PCP - Assigned PCP 01/28/18 10/09/18 [facility] [address] [place] [address] PCP - General 06/22/19 11/09/20 [place] [address] [place] [address] PCP - General Family Medicine 11/10/20 Lor Steele [employer] [facility] [address] [place] [address] Assigned PCP 01/28/18 03/02/19 [place] [address] [place] [address] Assigned PCP 03/03/19 02/01/20 Lor Steele NP [facility] [address] [place] [address] Assigned PCP 02/02/20 11/28/20 [place] [address] [place] [address] Assigned PCP 11/29/20 documented as of this encounter
--- OUTSIDE RECORDS SUMMARY | 2024-03-05 15:56 | XMS_ITS | Encounter Summary ---
Author Organization [facility] Address [address] [place] [address] Care Team Providers Care Chemical Dependency Professional Name Role Phone Ashley Rabago MD Primary Care Provider [phone] Lamar Knight APRN [facility] Primary Care Provi kinga Lor Steele SCIENTIST Primary Care Provider [phone] Lor Steele SCIENTIST Unavailable [phone] Lor Steele SCIENTIST Unavailable [phone] Shannon Dominguez MD Unavailable [phone] [facility] Primary Ca re Provider Lor Steele SCIENTIST Unavailable [phone] Shannon Dominguez MD Primary Care Provider [phone] Shannon Dominguez MD Unavailable [phone] Encounter Details Date Type Department Care Team (Late st Contact Info) Description 2012 MyC Medical Advice [facility] [address] [place] [address] [facility] Social History Tobacco Use Types Packs/Day Years Used Date Smoking Tobacco: Former Cigarettes Comments:quit in 1984 Alcohol Use Standard Drinks/Week Comments No 0 (1 standard drink = 0.6 oz pur e alcohol) rare Sex and Gender Information Value Date Recorded Sex Assigned at Female 08/17/2020 3:07 PM COPYIST Gender Identity Female 08/17/2020 3:07 PM COPYIST Sexual Orientation Straight 08/17/2020 3: 07 PM COPYIST documented as of this encounter Plan of Treatment Not on file documented as of this encounter Visit Diagnoses Not on filedocumented in this encounter Care Teams Chemical Dependency Professional Relationship Specialty Start Date End Date Ashley Rabago MD PCP - General Family Practice 07/30/10 05/22/14 Lamar Knight APRN BORDER INSPECTOR PCP - General Nurse Practitioner - Family 05/23/14 02/10/16 Lor Steele, SCIENTIST PCP - General Nurse Practitioner - Family 06/13/16 06/06/18 Lor Steele, SCIENTIST [facility] [address] [place] [address] PCP - Assigned PCP 01/28/18 10/09/18 [facility] [address] [place] [address] PCP - General 06/22/19 11/09/20 [place] [address] [place] [address] PCP - General Family Medicine 11/10/20 Lor Steele, SCIENTIST [facility] [address] [place] [address] Assigned PCP 01/28/18 03/02/19 [place] [address] [place] [address] Assigned PCP 03/03/19 02/01/20 Lor Steele NP [facility] [address] [place] [address] Assigned PCP 02/02/20 11/28/20 [place] [address] [place] [address] Assigned PCP 11/29/20 documented as of this encounter
--- OUTSIDE RECORDS SUMMARY | 2024-03-05 15:56 | XMS_ITS ---
Author Organization [employer] [employer] Address [address] [place] [address] Care Team Providers Care Readiness Paraprofessional Name Role Phone Dominic Shultz MD Unavailable Kinsey Patterson MD Primary Care Provider [phone] Active Problems Problem Noted Date Diagnosed Date Multiple thyroid nodules 03/04/2011 Osteopenia 09/10/2010 Lipoma of skin and subcutaneous tissue 0 Breast cancer, stage 2 02/03/2009 Current Oncology Plans No current plan information found. Past Plans No past plan information found. Radiation Treatments * No radiation treatments are documented for this patient in [facility]. Treatments may have been administered in another system. Lifetime Dose Tracking * Chemical Lifetime Dose Automatic Entry Manual Entr y CT Radiation 443.4 mGy 443.4 mGy 0 mGy Resolved Problems Problem Noted Date Diagnosed Date Resolved Date Osteoporosis 09/10/2010 09/10/2010 Osteopenia 02/16/2010 09/10/2010
--- OUTSIDE RECORDS SUMMARY | 2024-03-05 15:56 | XMS_ITS | Encounter Summary ---
Author Organization [facility] Address [address] [place] [address] Care Team Providers Care Time Study Statistician Name Role Phone Ashley Rabago MD Primary Care Provider [phone] Lamar Knight APRN [facility] Primary Care Provi kinga Lor Steele PHOTOENGRAVING PROOFER APPRENTICE Primary Care Provider Lor Steele PHOTOENGRAVING PROOFER APPRENTICE Unavailable [phone] Lor Steele PHOTOENGRAVING PROOFER APPRENTICE Unavailable [phone] Shannon Dominguez MD Unavailable [phone] [facility] Primary Ca re Provider Lor Steele PHOTOENGRAVING PROOFER APPRENTICE Unavailable [phone] Shannon Dominguez MD Primary Care Provider [phone] Shannon Dominguez MD Unavailable [phone] Reason for Visit * Reason Onset Date Comments MyChart Communication 09/23/2013 Encounter Details Date Type Department Care Team (Latest Contact Info) Description 09/23/2013 [facility] Adv[facility] [id number] [place] [address] Ashley Rabago MD [address] [place] [address] [id number] MyChart Communication Social History Tobacco Use Types Packs/Day Years Used Date Smoking Tobacco: Former Cigarettes Smokeless Tobacco: Never Comments:quit in 1984 Alcohol Use Standard Drinks/Week Comments No 0 (1 standard drink = 0.6 oz pur e alcohol) rare Sex and Gender Information Value Date Recorded Sex Assigned at Female 08/17/2020 3:07 PM QUALITY PROCESS AUDITOR Gender Identity Female 08/17/2020 3:07 PM QUALITY PROCESS AUDITOR Sexual Orientation Straight 08/17/2020 3: 07 PM QUALITY PROCESS AUDITOR documented as of this encounter Plan of Treatment Not on file documented as of this encounter Visit Diagnoses Not on filedocumented in this encounter Care Teams Time Study Statistician Relationship Specialty Start Date End Date Ashley Rabago MD PCP - General Family Practice 07/30/10 05/22/14 Lamar Knight APRN CNP PCP - General Nurse Practitioner - Family 05/23/14 02/10/16 Lor Steele PHOTOENGRAVING PROOFER APPRENTICE PCP - General Nurse Practitioner - Family 06/13/16 06/06/18 Lor Steele, PHOTOENGRAVING PROOFER APPRENTICE [facility] [address] [place] [address] PCP - Assigned PCP 01/28/18 10/09/18 [facility] [address] [place] [address] PCP - General 06/22/19 11/09/20 [place] [address] [place] [address] PCP - General Family Medicine 11/10/20 Lor Steele PHOTOENGRAVING PROOFER APPRENTICE [facility] [address] [place] [address] Assigned PCP 01/28/18 03/02/19 [place] [address] [place] [address] Assigned PCP 03/03/19 02/01/20 Lor Steele NP [facility] [address] [place] [address] Assigned PCP 02/02/20 11/28/20 [place] [address] [place] [address] Assigned PCP 11/29/20 documented as of this encounter
--- OUTSIDE RECORDS SUMMARY | 2024-03-05 15:56 | XMS_ITS | Clinical Summary ---
Author Organization [facility] Address [address] [place] [address] Care Team Providers Care Torpedoman'S Mate Name Role Phone Dominic Shultz MD Unavailable [phone] Kinsey Patterson MD Primary Care Provider [phone] Allergies Active Allergy Reactions Criticality Noted Date [...] Yrs MONOVALENT COVID Vaccine (purple cap) 09/26/2020,09/04/2020 Family History Medical History Relation Comments Breast Cancer Self Relation Status Comments Self Social History Tobacco Use Types Packs/Day Years [...] 03/29/2022 10:46 AM CDT Plan of Treatment Health Maintenance Due Date Last Done Comments Colonoscopy 1954 Hepatitis C Screening 1954 Depression Assessment (PHQ-2) 1955 RSV 60+ Yrs (1 - 1-dose 60+ series) 2014 Osteoporosis Screening 01/18/2023 01/18/2021 Yearly Review of HCD 03/29/2023 03/29/2022, 03/12/2021, 03/05/2020, Additional history exists COVID-19 Vaccine ( - 2022-2 4 season) 2023 08/17/2021, 09/26/2020, 09/04/2020 Influenza Vaccine (#1) 2024 05/17/2018, 2015 Adult Tetanus Booster 09/15/2032 09/15/2022 , 01/31/2019, 03/22/2010 Zoster Vaccine Completed 10/27/2020, 08/21/2020 Pneumococcal 65+ Completed 01/31/2022 Care Teams Torpedoman'S Mate Relationship Specialty Start Date End Date Kinsey Patterson MD [address] [place], [place] [address] PCP - General Family Medicine 03/04/24 Dominic Shultz MD [facility] [place] [address] [place] [phone] Hematology/Oncology 02/25/16
--- OUTSIDE RECORDS SUMMARY | 2024-03-05 15:56 | XMS_ITS | Encounter Summary ---
Author Organization [facility] Address [address] [place] [address] Care Team Providers Care Evp [employer] Sales Name Role Phone Lor Steele FORK ASSEMBLER Primary Care Provider Lor Steele FORK ASSEMBLER Unavailable [phone] Lor Steele FORK ASSEMBLER Unavailable [phone] Shannon Dominguez MD Unavailable [phone] [facility] Primary Ca re Provider Lor Steele NP Unavailable [phone] Shannon Dominguez MD Primary Care Provider Shannon Dominguez MD Unavailable [phone] Encounter Details Date Type Department Care Team (Late st Contact Info) Description 08/31/2016 MyC Medical Advice [facility] [address] [place] [address] Edward Degroot CMA Social History Tobacco Use Types Packs/Day Years Used Date Smoking Tobacco: Former Cigarettes Smokeless Tobacco: Never Comments:quit in 1984 Alcohol Use Standard Drinks/Week Comments No 0 (1 standard drink = 0.6 oz pur e alcohol) rare Sex and Gender Information Value Date Recorded Sex Assigned at Female 08/17/2020 3:07 PM REFUELING RAMPMAN Gender Identity Female 08/17/2020 3:07 PM REFUELING RAMPMAN Sexual Orientation Straight 08/17/2020 3: 07 PM REFUELING RAMPMAN documented as of this encounter Plan of Treatment Not on file documented as of this encounter Visit Diagnoses Not on filedocumented in this encounter Care Teams Evp Global Multimedia Sales Relationship Specialty Start Date End Date Lor Steele NP PCP - General Nurse Practitioner - Family 06/13/16 06/06/18 Lor Steele FORK ASSEMBLER [facility] [address] [place] [address] PCP - Assigned PCP 01/28/18 10/09/18 [facility] [address] [place] [address] PCP - General 06/22/19 11/09/20 [place] [address] [place] [address] PCP - General Family Medicine 11/10/20 Lor Steele FORK ASSEMBLER [place] [address] [address], [place] [address] Assigned PCP 01/28/18 03/02/19 [place] [address] [place] [address] Assigned PCP 03/03/19 02/01/20 Lor Steele FORK ASSEMBLER [facility] [address] [place] [address] Assigned PCP 02/02/20 11/28/20 [place] [address] [place] [address] Assigned PCP 11/29/20 documented as of this encounter
--- OUTSIDE RECORDS SUMMARY | 2024-03-05 15:56 | XMS_ITS | Encounter Summary ---
Author Organization [facility] Address [address] [place] [address] Care Team Providers Care Academic Services Coordinator Name Role Phone Ashley Rabago MD Primary Care Provider [phone] Lamar Knight APRN [facility] Primary Care Provi kinga Lor Steele ADMISSIONS MANAGER RN Primary Care Provider Lor Steele ADMISSIONS MANAGER RN Unavailable [phone] Lor Steele ADMISSIONS MANAGER RN Unavailable [phone] Shannon Dominguez MD Unavailable [phone] [facility] Primary Ca re Provider Lor Steele ADMISSIONS MANAGER RN Unavailable [phone] Shannon Dominguez MD Primary Care Provider [phone] Shannon Dominguez MD Unavailable [phone] Encounter Details Date Type Department Care Team (Late st Contact Info) Description 04/09/2012 MyC Medical Advice [facility] [address] [place] [address] Ashley Rabago MD [address] [place] [address] [id number] Social History Tobacco Use Types Packs/Day Years Used Date Smoking Tobacco: Former Cigarettes Comments:quit in 1984 Alcohol Use Standard Drinks/Week Comments No 0 (1 standard drink = 0.6 oz pur e alcohol) rare Sex and Gender Information Value Date Recorded Sex Assigned at Female 08/17/2020 3:07 PM VACUUM FILTER OPERATOR Gender Identity Female 08/17/2020 3:07 PM VACUUM FILTER OPERATOR Sexual Orientation Straight 08/17/2020 3: 07 PM VACUUM FILTER OPERATOR documented as of this encounter Plan of Treatment Not on file documented as of this encounter Visit Diagnoses Not on filedocumented in this encounter Care Teams Academic Services Coordinator Relationship Specialty Start Date End Date Ashley Rabago MD PCP - General Family Practice 07/30/10 05/22/14 Lamar Knight APRN CNP PCP - General Nurse Practitioner - Family 05/23/14 02/10/16 Lor Steele NP PCP - General Nurse Practitioner - Family 06/13/16 06/06/18 Lor Steele NP [facility] [address] [place] [address] PCP - Assigned PCP 01/28/18 10/09/18 [facility] [address] [place] [address] PCP - General 06/22/19 11/09/20 [place] [address] [place] [address] PCP - General Family Medicine 11/10/20 Lor Steele ADMISSIONS MANAGER RN [facility] [address] [place] [address] Assigned PCP 01/28/18 03/02/19 [place] [address] [place] [address] Assigned PCP 03/03/19 02/01/20 Lor Steele NP [facility] [address] [place] [address] Assigned PCP 02/02/20 11/28/20 [place] [address] [place] [address] Assigned PCP 11/29/20 documented as of this encounter
--- OUTSIDE RECORDS SUMMARY | 2024-03-05 15:56 | XMS_ITS | Encounter Summary ---
Author Organization [facility] Address [address] [place] [address] Care Team Providers Care Health Care Law Specialist Name Role Phone Ashley Rabago MD Primary Care Provider [phone] Lamar Knight APRN [facility] Primary Care Provi kinga Lor Steele MANUFACTURING SHIFT SUPERVISOR Primary Care Provider [phone] Lor Steele MANUFACTURING SHIFT SUPERVISOR Unavailable [phone] Lor Steele MANUFACTURING SHIFT SUPERVISOR Unavailable [phone] Shannon Dominguez MD Unavailable [phone] [facility] Primary Ca re Provider Lor Steele MANUFACTURING SHIFT SUPERVISOR Unavailable [phone] Shannon Dominguez MD Primary Care Provider [phone] Shannon Dominguez MD Unavailable [phone] Encounter Details Date Type Department Care Team (Late st Contact Info) Description 08/30/2012 MyC Medical Advice [facility] [address] [place] [address] [facility] Social History Tobacco Use Types Packs/Day Years Used Date Smoking Tobacco: Former Cigarettes Comments:quit in 1984 Alcohol Use Standard Drinks/Week Comments No 0 (1 standard drink = 0.6 oz pur e alcohol) rare Sex and Gender Information Value Date Recorded Sex Assigned at Female 08/17/2020 3:07 PM FINANCE PROFESSIONAL Gender Identity Female 08/17/2020 3:07 PM FINANCE PROFESSIONAL Sexual Orientation Straight 08/17/2020 3: 07 PM FINANCE PROFESSIONAL documented as of this encounter Plan of Treatment Not on file documented as of this encounter Visit Diagnoses Not on filedocumented in this encounter Care Teams Health Care Law Specialist Relationship Specialty Start Date End Date Ashley Rabago MD PCP - General Family Practice 07/30/10 05/22/14 Lamar Knight APRN TRAINING ASSISTANT PCP - General Nurse Practitioner - Family 05/23/14 02/10/16 Lor Steele, MANUFACTURING SHIFT SUPERVISOR PCP - General Nurse Practitioner - Family 06/13/16 06/06/18 Lor Steele, MANUFACTURING SHIFT SUPERVISOR [facility] [address] [place] [address] PCP - Assigned PCP 01/28/18 10/09/18 [facility] [address] [place] [address] PCP - General 06/22/19 11/09/20 [place] [address] [place] [address] PCP - General Family Medicine 11/10/20 Lor Steele, MANUFACTURING SHIFT SUPERVISOR [facility] [address] [place] [address] Assigned PCP 01/28/18 03/02/19 [place] [address] [place] [address] Assigned PCP 03/03/19 02/01/20 Lor Steele NP [facility] [address] [place] [address] Assigned PCP 02/02/20 11/28/20 [place] [address] [place] [address] Assigned PCP 11/29/20 documented as of this encounter
--- OUTSIDE RECORDS SUMMARY | 2024-03-05 15:56 | XMS_ITS | Encounter Summary ---
Author Organization [facility] Address [address] [place] [address] Care Team Providers Care Buffer Nickel Name Role Phone Ashley Rabago MD Primary Care Provider Lamar Knight APRN [facility] Primary Care Provi kinga Lor Steele CAREER TECHNICAL COUNSELOR Primary Care Provider Lor Steele CAREER TECHNICAL COUNSELOR Unavailable [phone] Lor Steele CAREER TECHNICAL COUNSELOR Unavailable [phone] Shannon Dominguez MD Unavailable [phone] [facility] Primary Ca re Provider Lor Steele CAREER TECHNICAL COUNSELOR Unavailable [phone] Shannon Dominguez MD Primary Care Provider [phone] Shannon Dominguez MD Unavailable [phone] Encounter Details Date Type Department Care Team (Late st Contact Info) Description 12/08/2010 MyC Medical Advice [facility] [address] [place] [address] Ashley Rabago MD [address] [place] [id number] Social History Tobacco Use Types Packs/Day Years Used Date Smoking Tobacco: Former Cigarettes Comments:quit in 1984 Alcohol Use Standard Drinks/Week Comments No 0 (1 standard drink = 0.6 oz pur e alcohol) rare Sex and Gender Information Value Date Recorded Sex Assigned at Female 08/17/2020 3:07 PM CUSTOM MOTORCYCLE PAINTER Gender Identity Female 08/17/2020 3:07 PM CUSTOM MOTORCYCLE PAINTER Sexual Orientation Straight 08/17/2020 3: 07 PM CUSTOM MOTORCYCLE PAINTER documented as of this encounter Plan of Treatment Not on file documented as of this encounter Visit Diagnoses Not on filedocumented in this encounter Care Teams Buffer Nickel Relationship Specialty Start Date End Date Ashley Rabago MD PCP - General Family Practice 07/30/10 05/22/14 Lamar Knight APRN CNP PCP - General Nurse Practitioner - Family 05/23/14 02/10/16 Lor Steele NP PCP - General Nurse Practitioner - Family 06/13/16 06/06/18 Lor Steele NP [facility] [address] [place] [address] PCP - Assigned PCP 01/28/18 10/09/18 [facility] [address] [place] [address] PCP - General 06/22/19 11/09/20 [place] [address] [place] [address] PCP - General Family Medicine 11/10/20 Lor Steele CAREER TECHNICAL COUNSELOR [facility] [address] [place] [address] Assigned PCP 01/28/18 03/02/19 [place] [address] [place] [address] Assigned PCP 03/03/19 02/01/20 Lor Steele NP [facility] [address] [place] [address] Assigned PCP 02/02/20 11/28/20 [place] [address] [place] [address] Assigned PCP 11/29/20 documented as of this encounter
--- OUTSIDE RECORDS SUMMARY | 2024-03-05 15:56 | XMS_ITS | Encounter Summary ---
Author Organization [facility] Address [address] [place] [place] [address] Care Team Providers Care Organ Fixer Name Role Phone Lor Steele COMMERCIAL AIRLINE PILOT Primary Care Provider Lor Steele COMMERCIAL AIRLINE PILOT Unavailable [phone] Lor Steele COMMERCIAL AIRLINE PILOT Unavailable [phone] Shannon Dominguez MD Unavailable [phone] [facility] Primary Ca re Provider Lor Steele NP Unavailable [phone] Shannon Dominguez MD Primary Care Provider Shannon Dominguez MD Unavailable [phone] Encounter Details Date Type Department Care Team (Late st Contact Info) Description 05/18/2017 MyC Medical Advice [facility] [address] [place] [address] Edward Degroot CMA Social History Tobacco Use Types Packs/Day Years Used Date Smoking Tobacco: Former Cigarettes Smokeless Tobacco: Never Comments:quit in 1984 Alcohol Use Standard Drinks/Week Comments No 0 (1 standard drink = 0.6 oz pur e alcohol) rare Sex and Gender Information Value Date Recorded Sex Assigned at Female 08/17/2020 3:07 PM INSPECTOR CHIEF Gender Identity Female 08/17/2020 3:07 PM INSPECTOR CHIEF Sexual Orientation Straight 08/17/2020 3: 07 PM INSPECTOR CHIEF documented as of this encounter Plan of Treatment Not on file documented as of this encounter Visit Diagnoses Not on filedocumented in this encounter Care Teams Organ Fixer Relationship Specialty Start Date End Date Lor Steele NP PCP - General Nurse Practitioner - Family 06/13/16 06/06/18 Lor Steele COMMERCIAL AIRLINE PILOT [facility] [address] [place] [address] PCP - Assigned PCP 01/28/18 10/09/18 [facility] [address] [place] [address] PCP - General 06/22/19 11/09/20 [place] [address] [place] [address] PCP - General Family Medicine 11/10/20 Lor Steele COMMERCIAL AIRLINE PILOT [place] [address] [address], [place] [address] Assigned PCP 01/28/18 03/02/19 [place] [address] [place] [address] Assigned PCP 03/03/19 02/01/20 Lor Steele COMMERCIAL AIRLINE PILOT [facility] [address] [place] [address] Assigned PCP 02/02/20 11/28/20 [place] [address] [place] [address] Assigned PCP 11/29/20 documented as of this encounter
--- OUTSIDE RECORDS SUMMARY | 2024-03-05 15:56 | XMS_ITS | Encounter Summary ---
Author Organization [facility] Address [address] [place] [address] Care Team Providers Care Disease Case Manager Rn Name Role Phone Ashley Rabago MD Primary Care Provider [phone] Lamar Knight APRN [facility] Primary Care Provi kinga Lor Steele RN HEDIS Primary Care Provider [phone] Lor Steele RN HEDIS Unavailable [phone] Lor Steele RN HEDIS Unavailable [phone] Shannon Dominguez MD Unavailable [phone] [facility] Primary Ca re Provider Lor Steele RN HEDIS Unavailable [phone] Shannon Dominguez MD Primary Care Provider [phone] Shannon Dominguez MD Unavailable [phone] Encounter Details Date Type Department Care Team (Late st Contact Info) Description 11/11/2013 MyC Medical Advice [facility] [address] [place] [address] Ashley Rabago MD [address] [place] [address] [id number] Social History Tobacco Use Types Packs/Day Years Used Date Smoking Tobacco: Former Cigarettes Smokeless Tobacco: Never Comments:quit in 1984 Alcohol Use Standard Drinks/Week Comments No 0 (1 standard drink = 0.6 oz pur e alcohol) rare Sex and Gender Information Value Date Recorded Sex Assigned at Female 08/17/2020 3:07 PM YOGHURT MAKER Gender Identity Female 08/17/2020 3:07 PM YOGHURT MAKER Sexual Orientation Straight 08/17/2020 3: 07 PM YOGHURT MAKER documented as of this encounter Plan of Treatment Not on file documented as of this encounter Visit Diagnoses Not on filedocumented in this encounter Care Teams Disease Case Manager Rn Relationship Specialty Start Date End Date Ashley Rabago MD PCP - General Family Practice 07/30/10 05/22/14 Lamar Knight APRN CNP PCP - General Nurse Practitioner - Family 05/23/14 02/10/16 Lor Steele NP PCP - General Nurse Practitioner - Family 06/13/16 06/06/18 Lor Steele RN HEDIS [place] [address] [address], [place] [address] PCP - Assigned PCP 01/28/18 10/09/18 [facility] [address] [place] [address] PCP - General 06/22/19 11/09/20 [place] [address] [place] [address] PCP - General Family Medicine 11/10/20 Lor Steele RN HEDIS [facility] [address] [place] [address] Assigned PCP 01/28/18 03/02/19 [place] [address] [place] [address] Assigned PCP 03/03/19 02/01/20 Lor Steele NP [facility] [address] [place] [address] Assigned PCP 02/02/20 11/28/20 [place] [address] [facility] [place] [address] Assigned PCP 11/29/20 documented as of this encounter
--- OUTSIDE RECORDS SUMMARY | 2024-03-05 15:56 | XMS_ITS | Encounter Summary ---
Author Organization [facility] Address [address] [place] [address] Care Team Providers Care Assistant Center Manager Name Role Phone Ashley Rabago MD Primary Care Provider [phone] Lamar Knight APRN [facility] Primary Care Provi kinga Lor Steele FRESH WORK INSPECTOR Primary Care Provider [phone] Lor Steele FRESH WORK INSPECTOR Unavailable [phone] Lor Steele FRESH WORK INSPECTOR Unavailable [phone] Shannon Dominguez MD Unavailable [phone] [facility] Primary Ca re Provider Lor Steele FRESH WORK INSPECTOR Unavailable [phone] Shannon Dominguez MD Primary Care Provider [phone] Shannon Dominguez MD Unavailable [phone] Encounter Details Date Type Department Care Team (Late st Contact Info) Description 01/29/2013 MyC Medical Advice [facility] [address] [place] [address] [facility] Social History Tobacco Use Types Packs/Day Years Used Date Smoking Tobacco: Former Cigarettes Comments:quit in 1984 Alcohol Use Standard Drinks/Week Comments No 0 (1 standard drink = 0.6 oz pur e alcohol) rare Sex and Gender Information Value Date Recorded Sex Assigned at Female 08/17/2020 3:07 PM MANAGER CLUB Gender Identity Female 08/17/2020 3:07 PM MANAGER CLUB Sexual Orientation Straight 08/17/2020 3: 07 PM MANAGER CLUB documented as of this encounter Plan of Treatment Not on file documented as of this encounter Visit Diagnoses Not on filedocumented in this encounter Care Teams Assistant Center Manager Relationship Specialty Start Date End Date Ashley Rabago MD PCP - General Family Practice 07/30/10 05/22/14 Lamar Knight APRN [employer] PCP - General Nurse Practitioner - Family 05/23/14 02/10/16 Lor Steele, FRESH WORK INSPECTOR PCP - General Nurse Practitioner - Family 06/13/16 06/06/18 Lor Steele, FRESH WORK INSPECTOR [facility] [address] [place] [address] PCP - Assigned PCP 01/28/18 10/09/18 [facility] [address] [place] [address] PCP - General 06/22/19 11/09/20 [place] [address] [place] [address] PCP - General Family Medicine 11/10/20 Lor Steele, FRESH WORK INSPECTOR [facility] [address] [place] [address] Assigned PCP 01/28/18 03/02/19 [place] [address] [place] [address] Assigned PCP 03/03/19 02/01/20 Lor Steele NP [facility] [address] [place] [address] Assigned PCP 02/02/20 11/28/20 [place] [address] [place] [address] Assigned PCP 11/29/20 documented as of this encounter
--- OUTSIDE RECORDS SUMMARY | 2024-03-05 15:56 | XMS_ITS | Encounter Summary ---
Author Organization [facility] Address [address] [place] [address] Care Team Providers Care Auto Technician Name Role Phone Ashley Rabago MD Primary Care Provider [phone] Lamar Knight APRN [facility] Primary Care Provi kinga Lor Steele RASPER MACHINE OPERATOR Primary Care Provider Lor Steele RASPER MACHINE OPERATOR Unavailable [phone] Lor Steele RASPER MACHINE OPERATOR Unavailable [phone] Shannon Dominguez MD Unavailable [phone] [facility] Primary Ca re Provider Lor Steele RASPER MACHINE OPERATOR Unavailable [phone] Shannon Dominguez MD Primary Care Provider [phone] Shannon Dominguez MD Unavailable [phone] Encounter Details Date Type Department Care Team (Late st Contact Info) Description 03/29/2012 MyC Medical Advice [facility] [address] [place] [address] Ashley Rabago MD [address] [place] [id number] Social History Tobacco Use Types Packs/Day Years Used Date Smoking Tobacco: Former Cigarettes Comments:quit in 1984 Alcohol Use Standard Drinks/Week Comments No 0 (1 standard drink = 0.6 oz pur e alcohol) rare Sex and Gender Information Value Date Recorded Sex Assigned at Female 08/17/2020 3:07 PM FILAMENT MAKER Gender Identity Female 08/17/2020 3:07 PM FILAMENT MAKER Sexual Orientation Straight 08/17/2020 3: 07 PM FILAMENT MAKER documented as of this encounter Plan of Treatment Not on file documented as of this encounter Visit Diagnoses Not on filedocumented in this encounter Care Teams Auto Technician Relationship Specialty Start Date End Date Ashley Rabago MD PCP - General Family Practice 07/30/10 05/22/14 Lamar Knight APRN CNP PCP - General Nurse Practitioner - Family 05/23/14 02/10/16 Lor Steele NP PCP - General Nurse Practitioner - Family 06/13/16 06/06/18 Lor Steele NP [facility] [address] [place] [address] PCP - Assigned PCP 01/28/18 10/09/18 [facility] [id number] [place] [address] PCP - General 06/22/19 11/09/20 [place] [address] [place] [address] PCP - General Family Medicine 11/10/20 Lor Steele RASPER MACHINE OPERATOR [facility] [address] [place] [address] Assigned PCP 01/28/18 03/02/19 [place] [address] [place] [address] Assigned PCP 03/03/19 02/01/20 Lor Steele NP [facility] [address] [place] [address] Assigned PCP 02/02/20 11/28/20 [place] [address] [place] [address] Assigned PCP 11/29/20 documented as of this encounter
== END 2024-03-05 07:35 | disposition home or self-care (01) ==
LOC: NFLDREF 15:42
PROVIDERS: PCP Family Medicine; Referring Provider Family Medicine; Visit Provider Family Medicine
DX: E03.9 Hypothyroidism, unspecified (principal); R53.83 Other fatigue; M85.80 Other specified disorders of bone density and structure, unspecified site
CPT/HCPCS: 80061; 82306; 84443

== ENCOUNTER 2025-06-10 07:32 | Outpatient (CLI) | payer MEDICARE, BC, SELFPAY | END 2025-06-10 07:33 | disposition home or self-care (01) | LOC: NFLDREF 06-12 15:08 | PROVIDERS: PCP Family Medicine; Referring Provider Family Medicine; Visit Provider Family Medicine | DX: E55.9 Vitamin D deficiency, unspecified (principal); E78.5 Hyperlipidemia, unspecified; Z90.89 Acquired absence of other organs; R79.89 Other specified abnormal findings of blood chemistry; Z98.890 Other specified postprocedural states | CPT/HCPCS: 80053; 80061; 82306; 84443 ==

== ENCOUNTER 2025-07-15 11:52 | Outpatient (CLI) | payer MEDICARE, BC, SELFPAY ==
--- NOTE | 2025-07-15 12:15 | MR_ITS ---
[facility] [address] [facility] [address] Phone:?[phone] Fax:?[phone] Referring Physician Information: Linus Cortes M.D. [address] [facility] [address] Phone:?[phone] Fax:?[phone] Patient:Washington Rivera D.O.B:?1955 Sex:?Female Phone:?[phone] [facility] MRN:?[id number] Exam Date:?07/15/2025 EXAM: MRI of the LEFT KNEE without contrast CLINICAL: Left knee pain. COMPARISONS: X-rays dated 06/13/2025. TECHNICAL: Multiplanar multisequence MRI of the left knee was obtained. SEDATION: None. CONTRAST: None. FINDINGS: Ligaments: ACL: Intact and unremarkable. PCL: Intact and unremarkable. MCL: Intact and unremarkable. LCL: Intact and unremarkable. Posterolateral corner: The popliteus tendon, distal biceps femoris tendon, distal iliotibial band, and the popliteofibular ligament appear intact. Posteromedial corner: Semimembranosus, pes anserine tendons and posterior oblique ligament appear intact. Extensor mechanism: Patellar tendon: Intact, without tendinopathy. Quadriceps tendon: Intact, without tendinopathy. Retinacula: Medial and lateral retinacula are intact. Fat pads: Unremarkable infrapatellar Hoffa's, quadriceps and prefemoral fat pads. Patellofemoral joint: Patella: There is high-grade near full-thickness to full-thickness chondral loss involving the patellar median ridge on axial series 4 image 10-11. Trochlea: No significant chondromalacia. Medial compartment: Medial meniscus: There is ill-defined high-grade complex tearing involving the posterior root as seen on sagittal series 6 image 13-14. Horizontal tearing involves the free edge of the posterior horn extending into the body segment on sagittal series 6 image 7-9 and coronal series 8 image 20-23. There is 3 mm of medial extrusion of the peripheral body segment into the medial gutter. Medial cartilage: There is mild grade 2 chondral thinning involving the weightbearing medial femoral condyle and medial tibial plateau. Lateral compartment: Lateral meniscus: There is ill-defined complex tearing involving the posterior root extending into the posterior horn as seen on sagittal series 6 images 18- 23. Horizontal dominant tearing also involves the body segment on coronal series 8 image 20-21. Lateral cartilage: Grade 2-3 chondral loss involves the lateral tibial plateau. Small segment of full-thickness chondral loss involving the posterior lateral tibial plateau as seen on sagittal series 6 image 21. High-grade chondral loss involves the medial aspect of the lateral tibial plateau with adjacent subchondral reactive marrow edema/cystic change. There is heterogeneity of the lateral femoral condyle cartilage. Knee joint: Effusion: Small to moderate-sized left knee effusion. Intra-articular bodies:?No convincing bodies identified. Popliteal cyst: None. Bones: There is reactive marrow edema and cystic change seen to involve the lateral aspect of the posterior medial tibial plateau adjacent to the posterior root medial meniscus attachment. No evidence of acute fracture. IMPRESSION: 1. Tearing of the medial and lateral menisci as above with medial extrusion of peripheral body segment medial meniscus into the medial gutter. 2. Tricompartmental chondral loss as above. 3. Small to moderate sized joint effusion. 4. No evidence of ligamentous injury or fracture. [facility] Electronically signed on 07/15/2025 4:18:00 PM by Prateek Oglesby D.O.
== END 2025-07-15 11:53 | disposition home or self-care (01) ==
LOC: MRI 11:53
PROVIDERS: PCP Family Medicine; Visit Provider Orthopaedic Surgery Sports Medicine
DX: M25.562 Pain in left knee (principal); S83.242A Other tear of medial meniscus, current injury, left knee, initial encounter; S83.282A Other tear of lateral meniscus, current injury, left knee, initial encounter; M17.12 Unilateral primary osteoarthritis, left knee; M25.462 Effusion, left knee
CPT/HCPCS: 73721

== ENCOUNTER 2025-08-06 14:14 | Outpatient (CLI) | payer MEDICARE, BC, SELFPAY ==
--- NOTE | 2025-08-06 14:30 | CRLHL7_ITS ---
For Patients: As a result of the Century Cures Act, medical imaging exams and procedure reports are released immediately into your electronic medical record. You may view this report before your referring provider. If you have questions, please contact your health care provider. XR DXA Bone Mineral Density (BMD) Reason for exam: Other specified disorders of bone density. Current height (in): 68.0. Weight (lb): 170.0. Menopause age: 49. Ethnicity: White. 1. Have you had a previous hip or vertebral fracture? No. 2. Have you had any fractures during your adult life which did not result from significant trauma (e.g., auto accident)? No. 3. Did either of your parents have a hip fracture? Yes. 4. Do you smoke? No. 5. Have you ever taken Glucocorticoids? No. 6. Do you have rheumatoid arthritis? No. 7. Do you have secondary osteoporosis? No. 8. Do you drink 3 or more alcoholic drinks per day? No. 9. Are you being treated for osteoporosis? No. 10. Have you ever taken any of the following medications: Actonel, Evista, Fosamax, Miacalcin, Reclast, Boniva, Forteo, HRT (i.e. estrogen/hormone therapy), Protelos, Prolia, Vitamin D, Calcium, other ??? please specify. ANSWER: Yes, Fosamax, vitamin D, calcium. 11. Do you have any of the following medical conditions: Anorexia or bulimia, asthma or emphysema, end stage renal disease, hyperparathyroidism, any seizure disorders, cancer, inflammatory bowel diseases, hysterectomy, other ??? please specify. ANSWER: Yes, cancer. 12. What was your maximum height (inches)? 69. 13. Do you perform weight bearing exercise regularly? No. 14. Do you regularly consume dairy products? Yes. 15. Do you drink caffeinated beverages? Yes. 16. At what age did your period start? 12. 17. Are you premenopausal? No. 18. How many full term pregnancies have you had? 2. 19. Have you ever missed your period for more than 6 months in a row (not including or menopause)? No. TECHNIQUE: Bone mineral density study was performed using the [employer]. FINDINGS: The results of the study expressed as bone mineral density (BMD) are as follows: Lumbar spine L1 to L4: BMD: 0.771 g/cm2. T-score: -2.5. Z-score: -0.3. Neck Left: BMD: 0.631 g/cm2. T-score: -2.0. Z-score: -0.1. Right: BMD: 0.669 g/cm2. T-score: -1.6. Z-score: 0.2. Total Left: BMD: 0.893 g/cm2. T-score: -0.4. Z-score: 1.2. Right: BMD: 0.850 g/cm2. T-score: -0.8. Z-score: 0.8. IMPRESSION: Osteoporosis. *Comparison exams done prior to 01/2020 were performed on different unit, [facility]. COMPARISON: Compared with scan of 02/08/2023, the bone mineral density has decreased by 4.0 percent at the spine and decreased by 2.5 percent at the hip. Gordon Álvarez M.D. Diagnostic Radiologist [email or web address] bM/Dictated by: Gordon Álvarez MD @ 08/06/2025 3:54:00 PM (Electronically Signed)
== END 2025-08-06 14:15 | disposition home or self-care (01) ==
LOC: RAD 14:15
PROVIDERS: PCP Family Medicine; Visit Provider Family Medicine
DX: M85.80 Other specified disorders of bone density and structure, unspecified site (principal); M81.0 Age-related osteoporosis without current pathological fracture; Z78.0 Asymptomatic menopausal state
CPT/HCPCS: 77080